=== PATIENT | female | born 1940 | race Caucasian/White ===

== ENCOUNTER 2017-08-03 07:06 | Day surgery (SDC) | payer MEDICARE, BC ==
--- NOTE | 2017-07-31 22:13 | HP ---
Amended report to enter cosigning physician on report. CC: Dr. Shelby PREOPERATIVE HISTORY AND PHYSICAL: DATE OF PREOPERATIVE HISTORY AND PHYSICAL EXAMINATION: 07/31/17. DATE OF ADMISSION: This patient is scheduled for a same day surgery admission by Dr. Shelby on , 08/03/17. ATTENDING SURGEON: Dr. Ngozi Shelby* (dictated by Adan Foley NP) CHIEF COMPLAINT: Right breast cancer. HISTORY OF PRESENT ILLNESS: The patient is a 76-year-old female who presented to Dr. Shelby with a new diagnosis of right breast cancer. The patient was doing monthly self breast exam and felt a small pea-sized lump in her right breast. She was referred for mammogram, which was unremarkable. 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 Menopause occurred between ages 52 and 57; she was on HRT for 2 years, 20 years ago. She has never had radiation to the chest and she has never had a breast biopsy that showed atypical ductal hyperplasia. The patient's mother had postmenopausal breast cancer diagnosed at age 85. There is no family history of ovarian cancer. She has met with Dr. Cho and Dr. Sims. Dr. Shelby has described the various surgical approaches and the patient has opted for needle localization excision of the right breast cancer and sentinel lymph node biopsy as a same-day surgery procedure. Dr. Shelby discussed the nature of the surgical procedure, the relevant risks, benefits, and alternatives and today I reviewed the expected postoperative care and recovery. The patient has had a chance to ask questions and stated that she understands the information and is satisfied with the answers given to her questions. She will sign surgical consent on the day of surgery. PAST MEDICAL HISTORY: Sensorineural hearing loss, spinal stenosis, osteoarthritis, and low back pain. PAST SURGICAL HISTORY: D and C with hysteroscopy in 2000 and stapedectomy in 1962. MEDICATIONS: No active medications. No prescribed current medications, but she is on: 1. Sarv-oyr-ehcritz glucosamine chondroitin. 2. Probiotic. 3. Calcium supplement, vitamin C supplement, and multivitamin supplement daily. ALLERGIES: PENICILLIN caused rash. FAMILY HISTORY: Mother diagnosed with breast cancer at age 85, at age 90. No known family history of ovarian cancer. No known family history of anesthesia complications, bleeding tendencies, or blood clots. SOCIAL HISTORY: She is ; she quit smoking 19 years ago, but had smoked half a pack of cigarettes per day for 20 years. She occasionally drinks alcohol. She denies the use of other substances. REVIEW OF SYSTEMS: Constitutional: No fevers, chills, night sweats, or excessive fatigue. Endocrine: No diabetes or thyroid disease. Hematologic: No easy bruising or bleeding. No history of blood transfusions. Breast: Abnormal right breast mass. Respiratory: No dyspnea on exertion, chronic cough , or hemoptysis. Cardiovascular: No anginal chest pain or palpitations. Gastrointestinal: No nausea, vomiting, diarrhea, GI bleeding, or constipation. No change in bowel habits. Genitourinary: No dysuria. Musculoskeletal: Lower back pain, osteoarthritis, and spinal stenosis. Neurologic: No headache , blurred vision, or areas of focal weakness. General: No previous anesthesia complications, no history of deep vein thrombosis or pulmonary embolism. PHYSICAL EXAMINATION GENERAL SURVEY: The patient is a 76-year-old obese female, well-developed, in no acute distress. VITAL SIGNS: Height 66 inches, weight 220 pounds, body mass index 35.8, blood pressure 118/74, pulse 84 and regular, respiratory rate 16, temperature 97.1 tympanic. HEENT: Benign. NECK: Supple. No cervical lymphadenopathy. No supraclavicular lymphadenopathy. No thyromegaly. LUNGS: Breath sounds bilaterally clear and equal. BREASTS: Symmetrical, bruising of the right breast at the core biopsy site, no infection. Dense tissue in the upper outer quadrant of both breasts. There is more nodularity in the right than the left associated with the bruising. There are no discrete masses. Nipples are erect bilaterally. No palpable axillary lymphadenopathy bilaterally. HEART: Regular rate and rhythm. No murmurs or rubs appreciated. ABDOMEN: Active bowel sounds, obese, soft, nondistended, and nontender throughout. No obvious masses, organomegaly, or evidence of ventral hernia. PELVIS AND RECTAL EXAMS: Deferred. EXTREMITIES: Warm without edema or skin ulceration. NEUROLOGIC: Alert and oriented x3. Steady gait. BACK: No CVA tenderness. SKIN: Warm, dry, and intact. IMPRESSION: Right breast cancer. PLAN: Same-day surgery admission to Dr. Shelby's service on , 08/03/17 , for needle localization, excision of right breast cancer, and sentinel lymph node biopsy. ADAN FOLEY, MATERIAL SPECIALIST [id number]/[facility] #: [id number] JUANA
[~2017-08-03 07:06] MED LIST: Buffered Lidocaine 0.9% SYRIN* 5 ML/SYR SYRINGE INTRADERM ONE
[2017-08-03] MEDS ORDERED: Lidocaine 2.5%/Prilocain 2.5%* 5 GM TUBE ONE (07:16)
--- NOTE | 2017-08-03 09:44 | RAD ---
Indication: Upper-outer quadrant RIGHT breast cancer. Wire localization. Comparison: June 29, 2017 Following discussion of benefits and risks including but not limited to pain, infection, and bleeding written informed consent was obtained. The breast was marked. PROCEDURE: A time out was performed. Cephalad to caudal cc approach selected. Lesion identified on initial mammographic view with fenestrated compression paddle. The skin was cleansed with antiseptic. 1% buffered Lidocaine was infiltrated into the skin and subcutaneous tissues. A 7.5cm 20g Zapata needle was advanced into the breast at the site of the targeted lesion. Position checked with a mammogram. Orthogonal view obtained to assess depth of needle. Needle depth adjusted and rechecked with mammography. The needle was removed and the hook wire deployed. Post deployment CC and ML views obtained and annotated for the surgeon. The free end of the wire was taped to the skin. The patient tolerated the procedure without difficult and there were no immediate complications. IMPRESSION: Successful mammographic guided wire localization biopsy marker clip upper outer quadrant RIGHT breast.
[2017-08-03] MEDS ORDERED: fentaNYL* 50 MCG/ML 2 ML VIAL (100 MCG VIAL) ONE ×2 (11:33→14:27)
[2017-08-03] MEDS ORDERED: Midazolam* 1 MG/ML 2 ML VIAL (2 MG) ONE ×2 (11:33→13:01)
--- NOTE | 2017-08-03 12:01 | RAD ---
INDICATION: RIGHT breast cancer. PROCEDURE: The risks and benefits of the procedure were explained to the patient. Written informed consent was obtained. 0.322 mCi total of filtered sulfur colloid were injected intradermal in 4 divided doses along the areolar margin flanking the RIGHT tumor site. Spot images?were?obtained?of?the?thorax with the ipsilateral arm over the head. Faint solitary ipsilateral axillary sentinal node marked on the skin utilizing a point source. IMPRESSION: Successful lymphoscintigraphy RIGHT breast.
[2017-08-03] MEDS ORDERED: Bupivacaine 0.25% SDV* 30 ML ONE (12:10)
[2017-08-03] MEDS ORDERED: Lidocaine 1% MPF wEPI 200,000* 30 ML SDV ONE (12:10)
[2017-08-03] MEDS ORDERED: Bupivacaine 0.5% SDV PF* 30 ML VIAL ONE (12:11)
[2017-08-03] MEDS ORDERED: Lidocaine 1% INJ* 10 MG/ML 30 ML SDV ONE (12:11)
[2017-08-03] MEDS ORDERED: Clindamycin 900 MG IVPREMIX(* 900 MG/50 ML SDV IV ONE (12:16)
[2017-08-03] MEDS ORDERED: Heparin VIAL(*) 5000 UNITS/ML VIAL (FIVE THOUSAND) ONE (12:16)
[2017-08-03] MEDS ORDERED: Propofol* 10 MG/ML 20 ML BTL IV PUSH ONE (13:59)
[2017-08-03] MEDS ORDERED: HYDROmorphone INJ* 1 MG/ML CARPUJECT SYRINGE IV PRN (14:42)
[2017-08-03] MEDS ORDERED: Acetaminophen TAB* 325 MG PO PRN (14:42)
[2017-08-03] MEDS ORDERED: Ondansetron INJ* 2 MG/ML VIAL IV PRN (14:42)
[2017-08-03] MEDS ORDERED: Ibuprofen TAB* 600 MG PO PRN (14:42)
--- NOTE | 2017-08-03 14:57 | PN ---
Progress Note - Progress Note Date of Service: 08/03/17 Note: Brief Operative Note: Preop Dx: right breast cancer Postop Dx: same Procedure: wide excision right breast cancer after needle localization; right axillary dissection Anesthesia: local MAC Surgeon: Heron Asst: ISACC Conteh EBL: < 50 ml Fluids: 600 ml RL Drains: 1 CODY Specimen: Right breast wide excision; tissue deep to initial specimen; Right axillary contents Findings: dictated
[2017-08-03] MEDS ORDERED: oxyCODONE/Acetamin 5/325 MG* TAB PO PRN (14:58)
[2017-08-03] MEDS ORDERED: Ibuprofen TAB* 600 MG ONE (15:03)
[2017-08-03 16:35] VITALS: BP 143/73
--- NOTE | 2017-08-04 03:43 | OP ---
CC: [facility]; Dr. Arie Null OPERATIVE REPORT: DATE OF OPERATION: 08/03/17 DATE OF : 44 SURGEON: Ngozi Shelby MD TECHNOLOGY TRAINING ASSOCIATE: ISACC Robison PRE-OP DIAGNOSIS: Right breast cancer. POST-OP DIAGNOSIS: Right breast cancer. OPERATIVE PROCEDURE: Needle localization excision of right breast cancer, sentinel lymph node local ization, and axillary dissection. INDICATIONS: Ms. Coffey is a 76-year-old woman who was recently diagnosed with breast cancer prompt ing the plan for surgical intervention. On the morning of the surgery, she underwent needle localiz ation and sentinel lymph node localization without difficulty, although the sentinel lymph node loca lization was reported to be faint. DESCRIPTION OF PROCEDURE: She was brought to the operating room placed on the OR table in a supine position and given IV sedation. The right breast and axilla were prepped and draped in the usual st erile fashion taking care not to dislodge the localizing wire. After infiltrating with a local anes thetic, a curvilinear elliptical incision encompassing the wire was made. Subcutaneous tissue was t hen divided with electrocautery to excise the mass of tissue from around the wire. It was noted cari t the wire protruded from the end of this specimen. So, it was marked in the usual fashion handed o ff and then additional tissue from deep to this specimen was taken. This was done with electrocaute ry. The second specimen was also marked in the usual fashion and handed off. Hemostasis was then a chieved with electrocautery and then attention was turned to the axilla. Here, it was recognized th at there was absolutely no radiotracer in the axilla. So, the specimens that had been handed off we re checked for any radiotracer and there was none in any of the specimens and so the decision was ma alina to proceed with axillary dissection. The axillary contents were identified after dissecting it f urther superiorly with a sharp and electrocautery dissection and then swept posteriorly from the pec toralis muscle inferiorly from the axillary vein and anteriorly from the latissimus dorsi muscle. A combination of sharp and blunt dissection was used to remove the axillary contents and clips were u sed to control small lymphatic vessels and blood vessels that traverse the specimen. Once it was re moved, it was handed off. The wound was irrigated with saline and checked for hemostasis, which was adequate. CODY drain was inserted into the wound through a small stab wound in the anterior axillary line. This was made after infiltrating with local anesthetic. Closure was then accomplished with 3-0 Polysorb in the subcutaneous layer and the skin was closed with 4-0 Prolene in the subcuticular fashion. Steri- Strips and a dry sterile dressing were applied. All sponge and instrument counts w ere correct. The patient tolerated the procedure well and was transferred to Recovery in a stable c ondition. [id number]/[facility] #: [id number]
== END 2017-08-03 17:10 | disposition home or self-care (01) ==
LOC: OR 07:06
PROVIDERS: ATTEND Surgery
DX: C50.911 Malignant neoplasm of unspecified site of right female breast (principal); C77.3 Secondary and unspecified malignant neoplasm of axilla and upper limb lymph nodes; Z80.3 Family history of malignant neoplasm of breast; Z88.0 Allergy status to penicillin; Z17.0 Estrogen receptor positive status [ER+]; Z87.891 Personal history of nicotine dependence
CPT/HCPCS: 78195; 88307; A9270-GY; A9541; J1644; J2001; J2250; J2704; J3010

== ENCOUNTER 2017-09-08 12:08 | Day surgery (SDC) | payer MEDICARE, BC ==
[~2017-09-08 12:08] MED LIST changes: +DiMENhydriNATE IV* 50 MG/ML VIAL IV PUSH PRN; +Famotidine IV* 10 MG/ML 2 ML (20 mg) IV ONE; +KETAMINE HCL* 50 MG/ML 10 ML VIAL ONE; +Midazolam* 1 MG/ML 10 ML VIAL (10 MG) ONE; +Morphine INJ* 2 MG/ML 1 ML CARPUJECT IV PRN; +Ondansetron INJ* 2 MG/ML VIAL IV PRN; +PROCHLORPERAZINE INJ 5 MG/ML 2 ML VIAL IV PRN; +fentaNYL* 50 MCG/ML 2 ML VIAL (100 MCG VIAL) IV PRN; +fentaNYL* 50 MCG/ML 2 ML VIAL (100 MCG VIAL) ONE; +oxyCODONE/Acetamin 5/325 MG* TAB PO PRN
[2017-09-08] MEDS ORDERED: Famotidine IV* 10 MG/ML 2 ML (20 mg) ONE (12:15)
[2017-09-08] MEDS ORDERED: Buffered Lidocaine 0.9% SYRIN* 5 ML/SYR SYRINGE ONE (12:16)
[2017-09-08] MEDS ORDERED: Lidocaine 1% INJ* 10 MG/ML 30 ML SDV ONE (12:36)
[2017-09-08] MEDS ORDERED: Bupivacaine 0.5% SDV PF* 30 ML VIAL ONE (12:37)
--- OUTSIDE RECORDS SUMMARY | 2017-09-08 13:20 | XMS REPORT ---
:1940 External Reference #:[id number] Author Organization [facility] Address [address] [address] Phone [phone] Care Team Providers Name Role Phone Arie Null MD Primary Care Physician Unavailable Payers Type Date Identification Numbers Payment Provider Subscriber Medicare Primary Policy Number: [id number] Medicare Lauren Ponce PayID: [id number] [address] [place] [address] [facility] Part B Effective: 2012 Policy Number: BS Facets Gómez Ponce [id number] PayID: [id number] [address] [address] [place] [address] Problems Description No Information Family History Date Family Member(s) Problem(s) Comments General Heart Disease General Cancer General Diabetes Social History Type Date Description Comments Lives With Occupation Retired Smokeless Tobacco Never Used Smokeless Tobacco ETOH Use Occasionally consumes alcohol Smoking Patient is a former smoker quit [id number] Exercise Type/Frequency Does not exercise Allergies, Adverse Reactions, Alerts Date Description Reaction Status Severity Comments 07/04/2017 Penicillin Urticaria active 04/10/2014 NKDA inactive Medications Medication Date Status Form Strength Qnty SIG Indications Ordering Provider Multi-Vitamin Active Tablets 1 by Unknown 000 mouth every day Vitamin C Plus Active Chewtabs 500mg 1/2 tab Unknown [place] 000 in the am and 1/2 pm Calcium Active 500 MG Unknown 000 daily Probiotic Active Capsules 1 by Unknown Daily 000 mouth every day Glucosamine Active Capsules 500Comp 1 by Unknown Chondroitin 000 mouth 500 Complex twice a day Ibuprofen Active Tablets 200mg as needed Unknown 000 Vitamin B Active Tablets 50mg 1 by Unknown Complex 000 mouth every day Oxycodone-Acet Hx Tablets 5-325mg 12tabs 1 tab by Nanci aminophen 017 mouth B. every 4- [place], 6 hours [employer] as needed No Active Hx Eulogio Medications 014 - Shreya Tatum 017 Vital Signs Date Vital Result Comment 09/06/2017 Heart Rate 78 /min Respiratory Rate 18 /min Body Temperature 97.4 F 09/04/2017 Heart Rate 72 /min Respiratory Rate 18 /min Body Temperature 98.3 F 09/01/2017 Heart Rate 72 /min Respiratory Rate 16 /min Body Temperature 97.7 F 08/28/2017 Heart Rate 72 /min Respiratory Rate 18 /min Body Temperature 96.8 F 08/22/2017 Heart Rate 84 /min Respiratory Rate 18 /min Body Temperature 96.3 F 08/21/2017 Heart Rate 78 /min Respiratory Rate 18 /min Body Temperature 97.2 F 08/14/2017 Heart Rate 84 /min Respiratory Rate 16 /min Body Temperature 98.6 F 08/10/2017 Heart Rate 76 /min Respiratory Rate 18 /min Body Temperature 98.5 F 08/07/2017 Heart Rate 84 /min Respiratory Rate 18 /min Body Temperature 97.9 F 07/31/2017 Height 66 inches 5'6" Weight 222.00 lb Heart Rate 84 /min BP Systolic Sitting 118 mmHg BP Diastolic Sitting 74 mmHg Respiratory Rate 16 /min Body Temperature 97.1 F BMI (Body Mass Index) 35.8 kg/m2 07/04/2017 Height 66 inches 5'6" Weight 220.00 lb Heart Rate 80 /min BP Systolic 118 mmHg BP Diastolic 78 mmHg Respiratory Rate 16 /min Body Temperature 98.2 F BMI (Body Mass Index) 35.5 kg/m2 06/03/2014 Height 66 inches 5'6" Heart Rate 70 /min BP Systolic 111 mmHg BP Diastolic 68 mmHg 05/20/2014 Height 66 inches 5'6" Weight 213.00 lb Heart Rate 71 /min BP Systolic 120 mmHg BP Diastolic 86 mmHg BMI (Body Mass Index) 34.4 kg/m2 04/10/2014 Height 67 inches 5'7" Weight 2129.56 lb Heart Rate 119 /min BP Systolic 67 mmHg BMI (Body Mass Index) 333.5 kg/m2 Results Test Date Test Result H/L Range Note Laboratory test 08/03/2017 Surgical Pathology SEE RESULT BELOW 1 finding 1 SEE RESULT BELOW Name: LAUREN PONCE : [address]: Ngozi Shelby MD Acct: [id number] Unit: [id number] AGE: 76 Location: OR Re08/03/17 SEX: F Status: [facility] [place] SPEC: [id number] CLARE: 08/03/[address]: Ngozi Shelby MD REQ: [id number] RECD: 08/03/17 STATUS: SOUT _ ORDERED: LEVEL 5/3 FINAL DIAGNOSIS 1. Breast, right, excision: -- Invasive ductal adenocarcinoma of breast, with: Size: Approximately 40 mm see comment. Overall Jose grade: 2/3 (7/9 points). Tubule formation: 3. Nuclear grade: 3. Mitotic count: 1. Margins: Tumor is present at the lateral deep, mid deep, medial deep, lateral inferior anterior and medial superior anterior margin. Lymphovascular invasion: Present, very extensive. Skin: Not involved. Chest-wall / pectoralis involvement: Not seen Ductal carcinoma in situ (DCIS): Focally Present. Size: Approximately 5 mm. Extent and distribution: Seen focally in association with invasive carcinoma. Architectural pattern: Solid and papillary. Nuclear grade: 3. Necrosis: Not seen. Margins: Clear by greater than 5 mm.. ER, PA, Her2/jorge by immunohistochemistry with appropriate controls: ER: Positive, 3+, 100% of tumor cells. See comment. PA: Negative. See comment. Her2/jorge: Negative, (0+). See comment. Microcalcifications: Not seen. Other findings: None. pTNM histopathologic stage: pT2N 1a M N/A. 2. Breast, right, excision: -- Invasive ductal adenocarcinoma of breast, with: Size: Approximately 16 mm. Overall Jose grade: 2/3 (7/9 points). Tubule formation: 3. Nuclear grade: 3. Mitotic count: 1. CONTINUED ON NEXT PAGE * ML=Testing performed at Main Lab DEPARTMENT OF PATHOLOGY, [address] [place] [address] Landon Turner M.D. Director [facility] # [id number] RUN DATE: 08/08/17 [facility] LIVE PAGE 2 Patient: LAUREN PONCE [id number] (Continued) FINAL DIAGNOSIS (Continued) Margins: Tumor is present at the cauterized inferior anterior margin of this specimen. See comment. Other margins are clear by greater than 5 mm.. Lymphovascular invasion: Present, extensive. Skin: NA. Chest-wall / pectoralis involvement: NA. Ductal carcinoma in situ (DCIS): Not seen. Microcalcifications: Not seen. Other findings: Not seen. 3. Axilla, right, dissection: -- Metastatic adenocarcinoma involving two of four lymph nodes (2/4). -- Largest tumor deposit measures 7 mm. -- No extracapsular extension identified. Comment: Hormone receptor studies for ER, PA and HER-2 reported above are from prior case [id number]. The cauterized superior anterior margin of specimen part 2 appears to represent contiguous tissue with the tumor excised in part 1. Given the orientation of the specimens to one another it does not appear that the overall greatest dimension surpasses 50 mm and therefore does not alter the T stage. Correlation with surgical and imaging findings is suggested. Dr. Larose has reviewed this case and concurs. PRE-OPERATIVE DIAGNOSIS Malignant neoplasm of upper outer quadrant of right female breast; 1) long suture lateral, medium suture medial, short suture superior GROSS DESCRIPTION 1. The specimen is received fresh labeled, Right Breast Tissue, and consists of a 6.9 x 5.5 by up to 3.5 cm yellow-pink irregular to ovoid portion of fibrofatty soft tissue with three attached sutures which are designated as follows: long-lateral, short- superior and medium-medial. The specimen is partially surfaced by a 3.0 x 0.7 cm chávez- pink wrinkled skin CONTINUED ON NEXT PAGE * ML=Testing performed at Main Lab DEPARTMENT OF PATHOLOGY, [address] [place] [address] Landon Turner M.D. Director [facility] # [id number] RUN DATE: 08/08/17 [facility] LIVE PAGE 3 Patient: LAUREN PONCE [id number] (Continued) GROSS DESCRIPTION (Continued) GROSS DESCRIPTION (Continued) ellipse on the mid anterior surface. There is a needle localization wire entering the specimen through the skin ellipse and exiting the specimen at the deep inferior margin. There is a 0.8 x 0.5 x 0.5 cm chávez-white indurated granular nodule within the central specimen associated with the localization wire, 1.2 cm from the inferior anterior margin and 1.3 cm from the deep margin. There is a 0.3 x 0.1 x 0.1 cm silver metallic clip within the nodule. Additionally there is a 0.5 x 0.4 x 0.4 cm dusky chávez-white soft area , 0.5 cm from the indurated nodule. The remaining cut surface consists predominantly of yellow lobulated adipose tissue with moderate interspersed chávez-pink dense to focally nodular fibrous tissue. The specimen is inked as follows: superior anterior-blue, inferior anterior- green and deep-black, serially sectioned from lateral to medial and shipping services sales representative sections are submitted in cassettes A through J to include nodule in cassettes E and F including section containing clip in cassette E and dusky area in cassettes D and E. 2. The specimen is received fresh labeled, Right Breast Tissue, Usual Markings, and consists of a 7.0 x 4.4 by up to 1.2 cm yellow-pink irregular portion of fibrofatty soft tissue with three attached sutures which are designated as follows: long- lateral, short-superior and medium-medial. The cut surface consists predominantly of yellow lobulated adipose tissue with mild interspersed chávez-white focally dense to nodular fibrous tissue. The specimen is inked as follows: superior anterior-blue, inferior anterior-green and deep-black, serially sectioned from superior to inferior and shipping services sales representative sections are submitted in cassettes A through G. 3. The specimen is received in formalin labeled, Axillary Contents Right Side, and consists of a 7.4 x 5.0 x 1.4 cm aggregate of yellow lobulated adipose tissue. Within the aggregate there are a few chávez-pink probable lymph nodes ranging from 0.6 cm to 1.6 cm in greatest dimension. The cut surface is glistening chávez-pink to white. The lymph nodes are serially sectioned and entirely submitted in four cassettes to include one serially sectioned lymph node in each cassette. Signed (signature on file) Landon Turner MD [id number] END OF REPORT * ML=Testing performed at Main Lab DEPARTMENT OF PATHOLOGY, [address] [place] [address] Landon Turner M.D. Director [facility] # [id number] Procedures Date CPT Code Description Status 08/18/2017 31876 Mastectomy Mod Radical Not Including Pectoralis Major Completed Muscle 08/18/2017 75919 Mastectomy Mod Radical Not Including Pectoralis Major Completed Muscle 08/15/2017 89032 ECHO Transthorasic Realtime 2D W Doppler & Color Completed Flow Hosp 08/03/2017 41439 Lymphadenectomy Axillary Complete Completed 08/03/2017 88787 Lymphadenectomy Axillary Complete Completed 08/03/2017 30907 Mastectomy Partial Completed 08/03/2017 35373 Mastectomy Partial Completed 08/03/2017 Mammogram Completed 06/29/2017 Mammogram Completed 05/26/2017 Mammogram Completed 09/12/2014 57847 ECHO Transthoracic, Real-Time 2D With Doppler And Color Completed Flow Encounters Type Date Location Provider CPT E/M Dx Office Visit 07/04/2017 [facility] [place] [address] C50.411 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 30735 836.0 10:00a Of C.M.AAparna Office Visit 04/10/2014 [facility] ROBERT Irizarry 76826 836.0 8:45a Of Isa Plan of Care Future Appointment(s):09/08/2017 12:45 pm - Ngozi Shelyb MD at [facility]09/06/2017 - Ngozi Shelby, MDC50.411 Malig neoplm of upper- outer quadrant of right female breastFollow up:scheduled for port placement in 2 days; return for further problems.
--- OUTSIDE RECORDS SUMMARY | 2017-09-08 13:21 | XMS REPORT ---
:1940 External Reference #:[id number] Author Organization [employer] Address [address] [address] Phone [phone] Care Team Providers Name Role Phone Arie Null MD Primary Care Physician Unavailable Payers Type Date Identification Numbers Payment Provider Subscriber Medicare Primary Policy Number: [id number] Medicare Michael Ponce PayID: [id number] [address] [place] [address] [facility] Part B Effective: 2012 Policy Number: BS Facets Gómez Ponce [id number] PayID: [id number] [address] [address] [place] [address] Problems Description No Information Family History Date Family Member(s) Problem(s) Comments General Heart Disease General Cancer General Diabetes Social History Type Date Description Comments Lives With Occupation Retired Smokeless Tobacco Never Used Smokeless Tobacco ETOH Use Occasionally consumes alcohol Smoking Patient is a former smoker quit [id number] Exercise Type/Frequency Does not exercise Allergies, Adverse Reactions, Alerts Date Description Reaction Status Severity Comments 07/04/2017 Penicillin Urticaria active 04/10/2014 NKDA inactive Medications Medication Date Status Form Strength Qnty SIG Indications Ordering Provider Multi-Vitamin Active Tablets 1 by Unknown 000 mouth every day Vitamin C Plus Active Chewtabs 500mg 1/2 tab Unknown [place] Hips 000 in the am and 1/2 pm Calcium Active 500 MG Unknown 000 daily Probiotic Active Capsules 1 by Unknown Daily 000 mouth every day Glucosamine Active Capsules 500Comp 1 by Unknown Chondroitin 000 mouth 500 Complex twice a day Ibuprofen Active Tablets 200mg as needed Unknown 000 Oxycodone-Acet Hx Tablets 5-325mg 12tabs 1 tab by Nanci aminophen 017 mouth B. 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 Breast, right, excision: -- Invasive ductal adenocarcinoma of breast, with: Size: Approximately 40 mm see comment. Overall [place] grade: 2/3 (7/9 points). Tubule formation: 3. [...] Clear by greater than 5 mm.. ER, MD, Her2/jorge by immunohistochemistry with appropriate controls: ER: Positive, 3+, 100% of tumor cells. See comment. MD: Negative. See comment. Her2/jorge: Negative, (0+). See comment. Microcalcifications: Not seen. Other findings: None. pTNM histopathologic stage: pT2N 1a M N/A. 2. Breast, right, excision: -- Invasive ductal adenocarcinoma of breast, with: Size: Approximately 16 mm. Overall [place] grade: 2/3 (7/9 points). Tubule formation: 3. Nuclear grade: 3. Mitotic count: 1. CONTINUED ON NEXT PAGE * ML=Testing performed at Main Lab DEPARTMENT OF PATHOLOGY, [address] [place] [address] Landon Turner M.D. Director [facility] # [id number] RUN DATE: 08/08/17 [facility] LAB LIVE PAGE 2 Patient: MICHAEL PONCE [id number] (Continued) FINAL DIAGNOSIS (Continued) Margins: Tumor is [...] identified. Comment: Hormone receptor studies for ER, MD and HER-2 reported above are from prior case [id number]. The cauterized superior anterior margin of specimen [...] performed at Main Lab DEPARTMENT OF PATHOLOGY, [address] [place] [address] Landon Turner M.D. Director [facility] # [id number] RUN DATE: 08/08/17 [facility] LAB LIVE PAGE 3 Patient: PONCEMICHAEL [id number] (Continued) GROSS DESCRIPTION (Continued) GROSS DESCRIPTION (Continued) [...] serially sectioned from lateral to medial and treasury representative sections are submitted in cassettes A [...] serially sectioned from superior to inferior and treasury representative sections are submitted in cassettes A [...] performed at Main Lab DEPARTMENT OF PATHOLOGY, [address] [place] [address] Landon Turner M.D. Director [facility] # [id number] Procedures Date CPT Code Description Status 08/03/2017 18331 Lymphadenectomy Axillary Complete Completed 08/03/2017 06430 Lymphadenectomy Axillary Complete Completed 08/03/2017 68550 Mastectomy Partial Completed 08/03/2017 40490 Mastectomy Partial Completed 08/03/2017 Mammogram Completed 06/29/2017 Mammogram Completed 05/26/2017 Mammogram Completed 09/12/2014 68316 ECHO Transthoracic, Real-Time 2D With Doppler And Color Completed Flow Encounters Type Date Location Provider CPT E/M Dx Office Visit 07/04/2017 [place] [address] C50.411 9:30a Of Abstractor Office Visit 06/03/2014 [facility] Connie Rahman, 16137 715.96 10:15a Of C.M.A. RPA-C Office Visit 05/20/2014 [facility] Eulogio Tatum M.D. 39131 836.0 10:00a Of C.M.A. Office Visit 04/10/2014 [facility] Cherrie Garcia RPA-C 11760 836.0 8:45a Of C.M.A. 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
--- OUTSIDE RECORDS SUMMARY | 2017-09-08 13:21 | XMS REPORT ---
:1940 External Reference #:[id number] Author Organization [employer] Address [address] [address] Phone [phone] Care Team Providers Name Role Phone Arie Null MD Primary Care Physician Unavailable Payers Type Date Identification Numbers Payment Provider Subscriber Medicare Primary Policy Number: [id number] Medicare Michael Ponce PayID: [id number] [address] [place] [address] [facility] Part B Effective: 2012 Policy Number: BS Facets Gómez Ponce [id number] PayID: [id number] [address] [address] [place] [address] Problems Description No Information Family History Date Family Member(s) Problem(s) Comments General Heart Disease General Cancer General Diabetes Social History Type Date Description Comments Lives With Occupation Retired Smokeless Tobacco Never Used Smokeless Tobacco ETOH Use Occasionally consumes alcohol Smoking Patient is a former smoker quit [id number] Exercise Type/Frequency Does not exercise Allergies, Adverse Reactions, Alerts Date Description Reaction Status Severity Comments 07/04/2017 Penicillin Urticaria active 04/10/2014 NKDA inactive Medications Medication Date Status Form Strength Qnty SIG Indications Ordering Provider Multi-Vitamin Active Tablets 1 by Unknown 000 mouth every day Vitamin C Plus Active Chewtabs 500mg 1/2 tab Unknown [place] Hips 000 in the am and 1/2 [...] mouth B. 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 Breast, right, excision: -- Invasive ductal adenocarcinoma of breast, with: Size: Approximately 40 mm see comment. Overall [place] grade: 2/3 (7/9 points). Tubule formation: 3. [...] Clear by greater than 5 mm.. ER, TN, Her2/jorge by immunohistochemistry with appropriate controls: ER: Positive, 3+, 100% of tumor cells. See comment. TN: Negative. See comment. Her2/jorge: Negative, (0+). See comment. Microcalcifications: Not seen. Other findings: None. pTNM histopathologic stage: pT2N 1a M N/A. 2. Breast, right, excision: -- Invasive ductal adenocarcinoma of breast, with: Size: Approximately 16 mm. Overall [place] grade: 2/3 (7/9 points). Tubule formation: 3. Nuclear grade: 3. Mitotic count: 1. CONTINUED ON NEXT PAGE * ML=Testing performed at Main Lab DEPARTMENT OF PATHOLOGY, [address] [place] [address] Landon Turner M.D. Director [facility] # [id number] RUN DATE: 08/08/17 [facility] LAB LIVE PAGE 2 Patient: MICHAEL PONCE [id number] (Continued) FINAL DIAGNOSIS (Continued) Margins: Tumor is [...] identified. Comment: Hormone receptor studies for ER, TN and HER-2 reported above are from prior case [id number]. The cauterized superior anterior margin of specimen [...] performed at Main Lab DEPARTMENT OF PATHOLOGY, [address] [place] [address] Landon Turner M.D. Director [facility] # [id number] RUN DATE: 08/08/17 [facility] LAB LIVE PAGE 3 Patient: MICHAEL PONCE Anup [id number] (Continued) GROSS DESCRIPTION (Continued) GROSS DESCRIPTION (Continued) [...] serially sectioned from lateral to medial and business center representative sections are submitted in cassettes A [...] serially sectioned from superior to inferior and business center representative sections are submitted in cassettes A [...] performed at Main Lab DEPARTMENT OF PATHOLOGY, [address] [place] [address] Landon Turner M.D. Director [facility] # [id number] Procedures Date CPT Code Description Status 08/18/2017 Mastectomy Mod Radical Not Including Pectoralis Major Completed Muscle 08/18/2017 06702 Mastectomy Mod Radical Not Including Pectoralis Major Completed Muscle 08/15/2017 64916 ECHO Transthorasic Realtime 2D W Doppler & Color Completed Flow Hosp 08/03/2017 61741 Lymphadenectomy Axillary Complete Completed 08/03/2017 11223 Lymphadenectomy Axillary Complete Completed 08/03/2017 09237 Mastectomy Partial Completed 08/03/2017 05540 Mastectomy Partial Completed 08/03/2017 Mammogram Completed 06/29/2017 Mammogram Completed 05/26/2017 Mammogram Completed 09/12/2014 15295 ECHO Transthoracic, Real-Time 2D With Doppler And Color Completed Flow Encounters Type Date Location Provider CPT E/M Dx Office Visit 07/04/2017 [place] [address] C50.411 9:30a Of Adoption Manager Office Visit 06/03/2014 [facility] Connie Rahman 14230 715.96 10:15a Of Isa JONES Office Visit 05/20/2014 [facility] Eulogio Tatum M.D. 85074 836.0 10:00a Of C.MAbdirizak Office Visit 04/10/2014 [facility] ROBERT Irizarry 09652 836.0 8:45a Of C.MAparnaAAparna Plan of Care Future Appointment(s):09/06/2017 10:30 am - Ngozi Shelby MD at [facility]09/08/2017 12:45 pm - Ngozi Shelby MD at [facility]09/04/2017 - Nanci Moore, NPC50.411 Malig neoplm of upper-outer quadrant of right female breastFollow up:09/06 CLF,possible gvjbihN70.4 Aspiration of fluid cause abn react/compl, w/o misadvnt
--- OUTSIDE RECORDS SUMMARY | 2017-09-08 13:21 | XMS REPORT ---
:1940 External Reference #:[id number] Author Organization [employer] Address [address] [address] Phone [phone] Care Team Providers Name Role Phone Arie Null MD Primary Care Physician Unavailable Payers Type Date Identification Numbers Payment Provider Subscriber Medicare Primary Policy Number: [id number] Medicare Michael Ponce PayID: [id number] [address] [place] [address] [facility] Part B Effective: 2012 Policy Number: BS Facets Gómez Ponce [id number] PayID: [id number] [address] [address] [place] [address] Problems Description No Information Family History Date Family Member(s) Problem(s) Comments General Heart Disease General Cancer General Diabetes Social History Type Date Description Comments Lives With Occupation Retired Smokeless Tobacco Never Used Smokeless Tobacco ETOH Use Occasionally consumes alcohol Smoking Patient is a former smoker quit [id number] Exercise Type/Frequency Does not exercise Allergies, Adverse Reactions, Alerts Date Description Reaction Status Severity Comments 07/04/2017 Penicillin Urticaria active 04/10/2014 NKDA inactive Medications Medication Date Status Form Strength Qnty SIG Indications Ordering Provider Multi-Vitamin Active Tablets 1 by Unknown 000 mouth every day Vitamin C Plus Active Chewtabs 500mg 1/2 tab Unknown [place] Hips 000 in the am and 1/2 [...] mouth B. 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 Breast, right, excision: -- Invasive ductal adenocarcinoma of breast, with: Size: Approximately 40 mm see comment. Overall [place] grade: 2/3 (7/9 points). Tubule formation: 3. [...] Clear by greater than 5 mm.. ER, ND, Her2/jorge by immunohistochemistry with appropriate controls: ER: Positive, 3+, 100% of tumor cells. See comment. ND: Negative. See comment. Her2/jorge: Negative, (0+). See [...] performed at Main Lab DEPARTMENT OF PATHOLOGY, [address] [place] [address] Landon Turner M.D. Director [facility] # [id number] RUN DATE: 08/08/17 [facility] LAB LIVE PAGE 2 Patient: ROSARIOMICHAEL [id number] (Continued) FINAL DIAGNOSIS (Continued) Margins: Tumor is [...] identified. Comment: Hormone receptor studies for ER, ND and HER-2 reported above are from prior case [id number]. The cauterized superior anterior margin of specimen [...] performed at Main Lab DEPARTMENT OF PATHOLOGY, [address] [place] [address] Landon Turner M.D. Director [facility] # [id number] RUN DATE: 08/08/17 [facility] LAB LIVE PAGE 3 Patient: PONCEMICHAEL [id number] (Continued) GROSS DESCRIPTION (Continued) GROSS DESCRIPTION (Continued) [...] serially sectioned from lateral to medial and manufacturers service representative sections are submitted in cassettes A [...] serially sectioned from superior to inferior and manufacturers service representative sections are submitted in cassettes A [...] performed at Main Lab DEPARTMENT OF PATHOLOGY, [address] [place] [address] Landon Turner M.D. Director [facility] # [id number] Procedures Date CPT Code Description Status 08/18/2017 26163 Mastectomy Mod Radical Not Including Pectoralis Major Completed Muscle 08/18/2017 01947 Mastectomy Mod Radical Not Including Pectoralis Major Completed Muscle 08/15/2017 78527 ECHO Transthorasic Realtime 2D W Doppler & Color Completed Flow Hosp 08/03/2017 29572 Lymphadenectomy Axillary Complete Completed 08/03/2017 27203 Lymphadenectomy Axillary Complete Completed 08/03/2017 45554 Mastectomy Partial Completed 08/03/2017 87729 Mastectomy Partial Completed 08/03/2017 Mammogram Completed 06/29/2017 Mammogram Completed 05/26/2017 Mammogram Completed 09/12/2014 47945 ECHO Transthoracic, Real-Time 2D With Doppler And Color Completed Flow Encounters Type Date Location Provider CPT E/M Dx Office Visit 07/04/2017 [place] [address] C50.411 9:30a Of [facility] Office Visit 06/03/2014 [facility] Connie Rahman, 33224 715.96 10:15a Of Isa JONES Office Visit 05/20/2014 [facility] Eulogio Tatum M.D. 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
--- OUTSIDE RECORDS SUMMARY | 2017-09-08 13:21 | XMS REPORT ---
:1940 External Reference #:[id number] Author Organization [employer] Address [address] [address] Phone [phone] Care Team Providers Name Role Phone Arie Null MD Primary Care Physician Unavailable Payers Type Date Identification Numbers Payment Provider Subscriber Medicare Primary Policy Number: [id number] Medicare Lauren Ponce PayID: [id number] [address] [place] [address] [facility] Part B Effective: 2012 Policy Number: BS Facets Gómez Ponce [id number] PayID: [id number] [address] [address] [place] [address] Problems Description No Information Family History Date Family Member(s) Problem(s) Comments General Heart Disease General Cancer General Diabetes Social History Type Date Description Comments Lives With Occupation Retired Smokeless Tobacco Never Used Smokeless Tobacco ETOH Use Occasionally consumes alcohol Smoking Patient is a former smoker quit [id number] Exercise Type/Frequency Does not exercise Allergies, Adverse Reactions, Alerts Date Description Reaction Status Severity Comments 07/04/2017 Penicillin Urticaria active 04/10/2014 NKDA inactive Medications Medication Date Status Form Strength Qnty SIG Indications Ordering Provider Multi-Vitamin Active Tablets 1 by Unknown 000 mouth every day Vitamin C Plus Active Chewtabs 500mg 1/2 tab Unknown [place] Hips 000 in the am and 1/2 pm Calcium Active 500 MG Unknown 000 daily Probiotic Active Capsules 1 by Unknown Daily 000 mouth every day Glucosamine Active Capsules 500Comp 1 by Unknown Chondroitin 000 mouth 500 Complex twice a day Ibuprofen Active Tablets 200mg as needed Unknown 000 Vitamin B Active Tablets 1 by Unknown Complex 000 mouth every day Oxycodone-Acet Hx Tablets 5-325mg 12tabs 1 tab by Nanci aminophen 017 mouth B. 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 ER, SC, Her2/jorge by immunohistochemistry with appropriate controls: ER: Positive, 3+, 100% of tumor cells. See comment. SC: Negative. See comment. Her2/jorge: Negative, (0+). See comment. Microcalcifications: Not seen. Other findings: None. pTNM histopathologic stage: pT2N 1a M N/A. 2. Breast, right, excision: -- Invasive ductal adenocarcinoma of breast, with: Size: Approximately 16 mm. Overall [place] grade: 2/3 (7/9 points). Tubule formation: 3. Nuclear grade: 3. Mitotic count: 1. CONTINUED ON NEXT PAGE * ML=Testing performed at Main Lab DEPARTMENT OF PATHOLOGY, [address] [place] [address] Landon Turner M.D. Director [facility] # [id number] RUN DATE: 08/08/17 [facility] LAB LIVE PAGE 2 Patient: LAUREN PONCE [id number] (Continued) FINAL DIAGNOSIS (Continued) Margins: Tumor is [...] identified. Comment: Hormone receptor studies for ER, SC and HER-2 reported above are from prior case [id number]. The cauterized superior anterior margin of specimen part 2 appears to represent contiguous tissue with the tumor excised in part 1. Given the orientation of the specimens to one another it does not appear that the overall greatest dimension surpasses 50 mm and therefore does not alter the T stage. Correlation with surgical and imaging findings is suggested. Dr. Laroes has reviewed this case and concurs. PRE-OPERATIVE [...] performed at Main Lab DEPARTMENT OF PATHOLOGY, [address] [place] [address] Landon Turner M.D. Director [facility] # [id number] RUN DATE: 08/08/17 [facility] LAB LIVE PAGE 3 Patient: LAUREN PONCE Anup [id number] (Continued) GROSS DESCRIPTION (Continued) GROSS DESCRIPTION (Continued) [...] serially sectioned from lateral to medial and sales donor recruitment representative sections are submitted in cassettes A [...] yellow lobulated adipose tissue with mild interspersed chávze-white focally dense to nodular fibrous tissue. The specimen is inked as follows: superior anterior-blue, inferior anterior-green and deep-black, serially sectioned from superior to inferior and sales donor recruitment representative sections are submitted in cassettes A [...] performed at Main Lab DEPARTMENT OF PATHOLOGY, [address] [place] [address] Landon Turner M.D. Director [facility] # [id number] Procedures Date CPT Code Description Status 08/18/2017 Mastectomy Mod Radical Not Including Pectoralis Major Completed Muscle 08/18/2017 53321 Mastectomy Mod Radical Not Including Pectoralis Major Completed Muscle 08/15/2017 39993 ECHO Transthorasic Realtime 2D W Doppler & Color Completed Flow Hosp 08/03/2017 09390 Lymphadenectomy Axillary Complete Completed 08/03/2017 26655 Lymphadenectomy Axillary Complete Completed 08/03/2017 05586 Mastectomy Partial Completed 08/03/2017 80318 Mastectomy Partial Completed 08/03/2017 Mammogram Completed 06/29/2017 Mammogram Completed 05/26/2017 Mammogram Completed 09/12/2014 37191 ECHO Transthoracic, Real-Time 2D With Doppler And Color Completed Flow Encounters Type Date Location Provider CPT E/M Dx Office Visit 07/04/2017 [place] [address] C50.411 9:30a Of [facility] Office Visit 06/03/2014 [facility] Connie Rahman, 26728 715.96 10:15a Of CJacek JONES Office Visit 05/20/2014 [facility] Eulogio Tatum M.D. 89966 836.0 10:00a Of C.M.AAparna Office Visit 04/10/2014 [facility] ROBERT Irizarry 47989 836.0 8:45a Of C.MAparnaAAparna Plan of Care Future Appointment(s):09/05/2017 1:45 pm - Ngozi Shelby MD at [facility]09/08/2017 12:45 pm - Ngozi Shelby MD at [facility]
--- OUTSIDE RECORDS SUMMARY | 2017-09-08 13:22 | XMS REPORT ---
:1940 External Reference #:[id number] Author Organization [facility] Address [address] [address] Phone [phone] Care Team Providers Name Role Phone Arie Null MD Primary Care Physician Unavailable Payers Type Date Identification Numbers Payment Provider Subscriber Medicare Primary Policy Number: [id number] Medicare Lauren Ponce PayID: [id number] [address] [place] [address] [facility] Part B Effective: 2012 Policy Number: BS Facets Gómez Ponce [id number] PayID: [id number] [address] [address] [place] [address] Problems Description No Information Family History Date Family Member(s) Problem(s) Comments General Heart Disease General Cancer General Diabetes Social History Type Date Description Comments Lives With Occupation Retired Smokeless Tobacco Never Used Smokeless Tobacco ETOH Use Occasionally consumes alcohol Smoking Patient is a former smoker quit [id number] Exercise Type/Frequency Does not exercise Allergies, Adverse Reactions, Alerts Date Description Reaction Status Severity Comments 07/04/2017 Penicillin Urticaria active 04/10/2014 NKDA inactive Medications Medication Date Status Form Strength Qnty SIG Indications Ordering Provider Multi-Vitamin Active Tablets 1 by Unknown 000 mouth every day Vitamin C Plus Active Chewtabs 500mg 1/2 tab Unknown [place] Hips 000 in the am and 1/2 [...] mouth B. every 4- [place], 6 hours OPTICAL EFFECTS LAYOUT PERSON as needed No Active Hx Eulogio Medications 014 - Shreya Tatum 017 Vital Signs Date Vital Result Comment 08/10/2017 Heart Rate 76 /min Respiratory Rate [...] 1 finding 1 SEE RESULT BELOW Name: ROSARIOLAUREN : [address]: Ngozi Shelby MD Acct: [id number] Unit: [id number] AGE: 76 Location: OR Re08/03/17 SEX: F Status: DEP [facility] SPEC: [id number] CLARE: 08/03/[address] [facility] [address]: Ngozi Shelby MD REQ: [id number] RECD: 08/03/17 STATUS: SOUT _ ORDERED: LEVEL 5/3 FINAL DIAGNOSIS 1. Breast, right, excision: -- Invasive ductal adenocarcinoma of breast, with: Size: Approximately 40 mm see comment. Overall [place] grade: 2/3 (7/9 points). Tubule formation: 3. [...] Clear by greater than 5 mm.. ER, MT, Her2/jorge by immunohistochemistry with appropriate controls: ER: Positive, 3+, 100% of tumor cells. See comment. MT: Negative. See comment. Her2/jorge: Negative, (0+). See [...] performed at Main Lab DEPARTMENT OF PATHOLOGY, [address] [place] [address] Landon Turner M.D. Director [facility] # [id number] RUN DATE: 08/08/17 [facility] LAB LIVE PAGE 2 Patient: LAUREN PONCE [id number] (Continued) FINAL DIAGNOSIS (Continued) Margins: Tumor is [...] identified. Comment: Hormone receptor studies for ER, MT and HER-2 reported above are from prior case [id number]. The cauterized superior anterior margin of specimen [...] performed at Main Lab DEPARTMENT OF PATHOLOGY, [address] [place] [address] Landon Turner M.D. Director [facility] # [id number] RUN DATE: 08/08/17 [facility] LAB LIVE PAGE 3 Patient: LAUREN PONCE Anup [id number] (Continued) GROSS DESCRIPTION (Continued) GROSS DESCRIPTION (Continued) [...] serially sectioned from lateral to medial and promotions representative sections are submitted in cassettes A [...] serially sectioned from superior to inferior and promotions representative sections are submitted in cassettes A [...] performed at Main Lab DEPARTMENT OF PATHOLOGY, [address] [place] [address] Landon Turner M.D. Director [facility] # [id number] Procedures Date CPT Code Description Status 08/03/2017 57545 Lymphadenectomy Axillary Complete Completed 08/03/2017 80101 Lymphadenectomy Axillary Complete Completed 08/03/2017 79232 Mastectomy Partial Completed 08/03/2017 64328 Mastectomy Partial Completed 08/03/2017 Mammogram Completed 06/29/2017 Mammogram Completed 05/26/2017 Mammogram Completed 09/12/2014 31173 ECHO Transthoracic, Real-Time 2D With Doppler And Color Completed Flow Encounters Type Date Location Provider CPT E/M Dx Office Visit 07/04/2017 [facility] [place] [address] C50.411 9:30a Of Glaze Maker Office Visit 06/03/2014 [facility] Connie Rahman, 81015 715.96 10:15a Of C.M.A. RPA-C Office Visit 05/20/2014 [facility] Eulogio Tatum M.D. 11171 836.0 10:00a Of C.M.A. Office Visit 04/10/2014 [facility] Cherrie Garcia RPA-C 85909 836.0 8:45a Of C.M.A. Plan of Care 08/07/2017 - Nanci Moore, NPC50.411 Malig neoplm of upper-outer quadrant of right female breastFollow up:08/10 [place],REMOVE JPZ48.01 Encounter for change or removal of surgical wound dressing
--- OUTSIDE RECORDS SUMMARY | 2017-09-08 13:22 | XMS REPORT ---
:1940 External Reference #:[id number] Author Organization [facility] Address [address] [address] Phone [phone] Care Team Providers Name Role Phone Arie Nlul MD Primary Care Physician Unavailable Payers Type Date Identification Numbers Payment Provider Subscriber Medicare Primary Policy Number: [id number] Medicare Lauren Ponce PayID: [id number] [address] [place] [address] [facility] Part B Effective: 2012 Policy Number: BS Facets Gómez Ponce [id number] PayID: [id number] [address] [address] [place] [address] Problems Description No Information Family History Date Family Member(s) Problem(s) Comments General Heart Disease General Cancer General Diabetes Social History Type Date Description Comments Lives With Occupation Retired Smokeless Tobacco Never Used Smokeless Tobacco ETOH Use Occasionally consumes alcohol Smoking Patient is a former smoker quit [id number] Exercise Type/Frequency Does not exercise Allergies, Adverse Reactions, Alerts Date Description Reaction Status Severity Comments 07/04/2017 Penicillin Urticaria active 04/10/2014 NKDA inactive Medications Medication Date Status Form Strength Qnty SIG Indications Ordering Provider Multi-Vitamin Active Tablets 1 by Unknown 000 mouth every day Vitamin C Plus Active Chewtabs 500mg 1/2 tab Unknown [place] Hips 000 in the am and 1/2 [...] B. 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 Breast, right, excision: -- Invasive ductal adenocarcinoma of breast, with: Size: Approximately 40 mm see comment. Overall [place] grade: 2/3 (7/9 points). Tubule formation: 3. [...] Clear by greater than 5 mm.. ER, CA, Her2/jorge by immunohistochemistry with appropriate controls: ER: Positive, 3+, 100% of tumor cells. See comment. CA: Negative. See comment. Her2/jorge: Negative, (0+). See [...] performed at Main Lab DEPARTMENT OF PATHOLOGY, [address] [place] [address] Landon Turner M.D. Director [facility] # [id number] RUN DATE: 08/08/17 [facility] LAB LIVE PAGE 2 Patient: LAUREN PONCE [id number] (Continued) FINAL DIAGNOSIS (Continued) Margins: Tumor is [...] identified. Comment: Hormone receptor studies for ER, CA and HER-2 reported above are from prior case [id number]. The cauterized superior anterior margin of specimen [...] performed at Main Lab DEPARTMENT OF PATHOLOGY, [address] [place] [address] Landon Turner M.D. Director [facility] # [id number] RUN DATE: 08/08/17 [facility] LAB LIVE PAGE 3 Patient: LAUREN PONCE [id number] (Continued) GROSS DESCRIPTION (Continued) GROSS DESCRIPTION (Continued) [...] serially sectioned from lateral to medial and internet sales representative sections are submitted in cassettes [...] serially sectioned from superior to inferior and internet sales representative sections are submitted in cassettes [...] performed at Main Lab DEPARTMENT OF PATHOLOGY, [address] [place] [address] Landon Turner M.D. Director [facility] # [id number] Procedures Date CPT Code Description Status 08/03/2017 68208 Lymphadenectomy Axillary Complete Completed 08/03/2017 06161 Lymphadenectomy Axillary Complete Completed 08/03/2017 51488 Mastectomy Partial Completed 08/03/2017 22917 Mastectomy Partial Completed 08/03/2017 Mammogram Completed 06/29/2017 Mammogram Completed 05/26/2017 Mammogram Completed 09/12/2014 75892 ECHO Transthoracic, Real-Time 2D With Doppler And Color Completed Flow Encounters Type Date Location Provider CPT E/M Dx Office Visit 07/04/2017 [place] [address] C50.411 9:30a Of Client Service Administrator Office Visit 06/03/2014 [facility] Connie Rahman, 85944 715.96 10:15a Of C.M.A. RPA-C Office Visit 05/20/2014 [facility] Eulogio Tatum M.D. 89221 836.0 10:00a Of C.M.A. Office Visit 04/10/2014 [facility] ROBERT Irizarry 20026 836.0 8:45a Of C.M.A. Plan of Care 08/14/2017 - Ngozi Shelby, MDC50.411 Malig neoplm of upper-outer quadrant of right female breastFollow up:TBA; will call meanwhile I will tentatively schedule mastectomy and completion axillary dissection; if she changes her mind , we will adjust the schedule.
--- OUTSIDE RECORDS SUMMARY | 2017-09-08 13:22 | XMS REPORT ---
:1940 External Reference #:[id number] Author Organization [facility] Address [address] [address] Phone [phone] Care Team Providers Name Role Phone Arie Null MD Primary Care Physician Unavailable Payers Type Date Identification Numbers Payment Provider Subscriber Medicare Primary Policy Number: [id number] Medicare Michael Ponce PayID: [id number] [address] [place] [address] [facility] Part B Effective: 2012 Policy Number: BS Facets Gómez Ponce [id number] PayID: [id number] [address] [address] [place] [address] Problems Description No Information Family History Date Family Member(s) Problem(s) Comments General Heart Disease General Cancer General Diabetes Social History Type Date Description Comments Lives With Occupation Retired Smokeless Tobacco Never Used Smokeless Tobacco ETOH Use Occasionally consumes alcohol Smoking Patient is a former smoker quit [id number] Exercise Type/Frequency Does not exercise Allergies, Adverse Reactions, Alerts Date Description Reaction Status Severity Comments 07/04/2017 Penicillin Urticaria active 04/10/2014 NKDA inactive Medications Medication Date Status Form Strength Qnty SIG Indications Ordering Provider Multi-Vitamin Active Tablets 1 by Unknown 000 mouth every day Vitamin C Plus Active Chewtabs 500mg 1/2 tab Unknown [place] Hips 000 in the am and 1/2 [...] mouth B. every 4- [place], 6 hours MANAGER CHANNEL as needed No Active Hx Eulogio Medications Som - Shreya Tatum 017 Vital Signs Date Vital Result Comment 08/21/2017 Heart Rate 78 /min Respiratory Rate [...] [address]: Ngozi Shelby MD Acct: [id number] Unit: [id number] AGE: 76 Location: OR Re08/03/17 SEX: F Status: [facility] SPEC: [id number] CLARE: 08/03/[address]: Ngozi Shelby MD REQ: [id number] RECD: 08/03/17 STATUS: SOUT _ ORDERED: LEVEL 5/3 FINAL DIAGNOSIS 1. Breast, right, excision: -- Invasive ductal adenocarcinoma of breast, with: Size: Approximately 40 mm see comment. Overall [place] grade: 2/3 (7/9 points). Tubule formation: 3. [...] Clear by greater than 5 mm.. ER, OK, Her2/jorge by immunohistochemistry with appropriate controls: ER: Positive, 3+, 100% of tumor cells. See comment. OK: Negative. See comment. Her2/jorge: Negative, (0+). See comment. Microcalcifications: Not seen. Other findings: None. pTNM histopathologic stage: pT2N 1a M N/A. 2. Breast, right, excision: -- Invasive ductal adenocarcinoma of breast, with: Size: Approximately 16 mm. Overall [place] grade: 2/3 (7/9 points). Tubule formation: 3. Nuclear grade: 3. Mitotic count: 1. CONTINUED ON NEXT PAGE * ML=Testing performed at Main Lab DEPARTMENT OF PATHOLOGY, [address] [place] [address] Landon Turner M.D. Director [facility] # [id number] RUN DATE: 08/08/17 [facility] LAB LIVE PAGE 2 Patient: MICHAEL PONCE [id number] (Continued) FINAL DIAGNOSIS (Continued) Margins: Tumor is [...] identified. Comment: Hormone receptor studies for ER, OK and HER-2 reported above are from prior case [id number]. The cauterized superior anterior margin of specimen [...] performed at Main Lab DEPARTMENT OF PATHOLOGY, [address] [place] [address] Landon Turner M.D. Director [facility] # [id number] RUN DATE: 08/08/17 [facility] LAB LIVE PAGE 3 Patient: MICHAEL PONCE Anup [id number] (Continued) GROSS DESCRIPTION (Continued) GROSS DESCRIPTION (Continued) [...] serially sectioned from lateral to medial and service representative sections are submitted in cassettes [...] serially sectioned from superior to inferior and service representative sections are submitted in cassettes [...] performed at Main Lab DEPARTMENT OF PATHOLOGY, [address] [place] [address] Landon Turner M.D. Director [facility] # [id number] Procedures Date CPT Code Description Status 08/03/2017 21950 Lymphadenectomy Axillary Complete Completed 08/03/2017 38753 Lymphadenectomy Axillary Complete Completed 08/03/2017 78664 Mastectomy Partial Completed 08/03/2017 93638 Mastectomy Partial Completed 08/03/2017 Mammogram Completed 06/29/2017 Mammogram Completed 05/26/2017 Mammogram Completed 09/12/2014 35481 ECHO Transthoracic, Real-Time 2D With Doppler And Color Completed Flow Encounters Type Date Location Provider CPT E/M Dx Office Visit 07/04/2017 [facility] [place] [address] C50.411 9:30a Of [facility] Office Visit 06/03/2014 [facility] Connie Rahman, 50942 715.96 10:15a Of C.M.A. RPA-C Office Visit 05/20/2014 [facility] Eulogio Tatum M.D. 04649 836.0 10:00a Of C.M.A. Office Visit 04/10/2014 [facility] Cherrie Garcia RPA-C 44162 836.0 8:45a Of C.M.A. Plan of Care Future Appointment(s):08/22/2017 1:45 pm - ISACC Poe at [facility]08/21/2017 - Ngozi Shelby, MDC50.411 Malig neoplm of upper- outer quadrant of right female breastFollow up:tomorrow with CLF or CE or CP, or BA
[2017-09-08] MEDS ORDERED: Propofol* 10 MG/ML 20 ML BTL IV PUSH ONE (13:46)
[2017-09-08] MEDS ORDERED: Lidocaine 2% PF * 5 ML VIAL ONE (13:47)
[2017-09-08 14:35] VITALS: BP 147/73
--- NOTE | 2017-09-08 14:46 | RAD ---
INDICATION: Status post PowerPort central venous catheter placement. COMPARISON: Comparison is made with a prior chest x-ray study from February 21, 2007. TECHNIQUE: A portable view of the chest was obtained. FINDINGS: There is a power port central venous catheter entering on the left side. The catheter tip projects overlying the superior vena cava. The heart is within normal limits in size. The lungs are underinflated and clear. No pneumothorax is seen. Several surgical clips project in the right axillar region most consistent with a prior axillary node dissection. IMPRESSION: STATUS POST POWERPORT CENTRAL VENOUS CATHETER PLACEMENT, NO EVIDENCE FOR ACUTE FINDING.
--- NOTE | 2017-09-08 16:15 | RAD ---
CPT II Codes: 6045F INDICATION: Breast cancer TECHNIQUE: Intraoperative fluoroscopy was provided during left subclavian vein Mediport placement.. FINDINGS: 2 spot films depict placement of a left subclavian vein Mediport. Fluoroscopy time: 31.9 seconds IMPRESSION: As above.
--- NOTE | 2017-09-09 09:38 | OP ---
CC: Dr. Arie Null; Dr. Migdalia Cho * DATE OF OPERATION: 09/08/17 - [facility] DATE OF : 44 SURGEON: Dr. Shelby. SELENIUM PLANT OPERATOR: There was no surgical assistant certified for this case. PRE-OP DIAGNOSIS: Right breast cancer POST-OP DIAGNOSIS: Right breast cancer OPERATIVE PROCEDURE: PowerPort placement INDICATIONS: Ms. Coffey is a 77-year-old woman who has been managed for her right breast cancer who now needs chemotherapy. Plans were therefore made for surgical intervention. DESCRIPTION OF PROCEDURE: She was brought to the operating room, placed on the OR table in a supine position and given IV sedation. The left chest wall was prepped and draped in usual sterile fashion. After infiltrating with the local anesthetic, using a Seldinger technique, a wire was placed in the left subclavian vein under fluoroscopic visualization. Then a port pocket was then created by infiltrating the skin on the chest wall anteriorly with local anesthetic, making an incision and elevating the skin inferior to the incision using electrocautery. Once the pocket was of a size to accommodate the port, the catheter was tunneled from the wire exit site to the port pocket site and then the dilator and introducer were fed over the wire into the subclavian vein under fluoroscopic visualization and the dilator and wire were removed. The catheter having then flushed was advanced through the introducer under fluoroscopic visualization and then the introducer was peeled away. The catheter was trimmed to an appropriate length and attached to the port after its position in the superior vena cava was confirmed and then the port was secured to the chest wall with 2-0 Prolene stitches. The port pocket was closed using 3-0 Polysorb in the subcutaneous layer and the skin was closed with 4-0 Surgipro in a subcuticular fashion. The small skin gunnar that have been made at the wire exit site was closed with a single stitch of 4-0 Prolene as well. Steri- Strips and a dry sterile dressing were applied after the function of the port was confirmed. All sponge and instrument counts were correct. The patient tolerated the procedure well and was transferred to Recovery in a stable condition. [id number]/[facility] #: [id number] [facility]
== END 2017-09-08 15:15 | disposition home or self-care (01) ==
LOC: OR 12:08
PROVIDERS: ATTEND Surgery
DX: C50.411 Malignant neoplasm of upper-outer quadrant of right female breast (principal); Z87.891 Personal history of nicotine dependence; Z17.0 Estrogen receptor positive status [ER+]
CPT/HCPCS: 71010; 76000; J1642; J2250; J2704; J3010

== ENCOUNTER 2017-09-21 21:46 | Observation (INO) | payer MEDICARE, BC ==
[2017-09-21 23:15] LABS: Comments Flag Yes; Hematocrit 32 % (35-47); Hemoglobin 10.9 g/dl (12.0-16.0); Mean Corpuscular HGB Conc 34 g/dl (31-36); Mean Corpuscular Hemoglobin 32 pg (27-31); Mean Corpuscular Volume 94 fL (80-97); Mean Platelet Volume 9 um3 (7.4-10.4); Red Blood Count 3.46 10^6/ul (4.0-5.4); Red Cell Distribution Width 14 % (10.5-15); White Blood Count 1.1 10^3/ul (3.5-10.8)
[2017-09-21 23:18] LABS: Add Diff/Slide Review? Slide Review Added
[2017-09-21 23:29] LABS: Albumin 3.5 g/dL (3.2-5.2); BUN/Creatinine Ratio 18.2 (8-20); Calcium 9.2 mg/dL (8.6-10.3); EGFR Non-African American 73.1 (>60); Globulin 2.8 g/dL (2-4); Potassium 4.1 mmol/L (3.5-5.0); Total Bilirubin 0.8 mg/dL (0.2-1.0); Total Protein 6.3 g/dL (6.4-8.9)
[2017-09-22 00:37] LABS: Urine Bilirubin Negative (Negative); Urine Glucose Negative (Negative); Urine Nitrite Negative (Negative)
[2017-09-22] MEDS ORDERED: cefTAZidime 2 GM in NS 0.9% 100 ML* 100 ML IVPB ONE (01:13)
[2017-09-22] MEDS ORDERED: Acetaminophen TAB* 325 MG PO PRN (01:42)
[2017-09-22] MEDS ORDERED: NS 0.9% 1000 ML* 1,000 ML IV SCH ×2 (02:00→10:31)
--- NOTE | 2017-09-22 03:26 | HP ---
CC: Dr. Wilkinson; Dr. Cho; Dr. Shelby from Surgery * HISTORY AND PHYSICAL: DATE OF ADMISSION: 09/22/17 PRIMARY CARE PROVIDER: Dr. Cho. CHIEF COMPLAINT: Fever. HISTORY OF PRESENT ILLNESS: Lauren Coffey is a 77-year-old female who is status post right-sided mastectomy in August of 2017 for breast cancer diagnosed a month earlier. The patient stated that she had lumpectomy in July of 2017 and right- sided mastectomy in August of 2017. She had a PowerPort placed in her left chest in the beginning of September 2017 and currently is status post first chemotherapy that was infused on 09/22/17. She stated that she had been doing fine. Apart from that that for the past 3 days, she had been having loose stools. She describes them as loose stools 3 to 4 times a day. She stated that it is "not diarrhea." She denies abdominal pain, but she feels "discomfort" in the entire abdomen. She noted that she had a fever of 101 degrees within the past 24 hours. She has no other symptoms. She presented to the ED and she was noted to be neutropenic with absolute neutrophil count of 0.5. She is going to be placed on overnight observation with diagnosis of neutropenic fever. PAST MEDICAL HISTORY: 1. Status post right-sided mastectomy for breast cancer, currently undergoing chemotherapy. 2. History of hearing loss. 3. History of spinal stenosis. 4. Osteoarthritis. 5. History of lower back pain. 6. History of status post D and C and hysteroscopy and salpingectomy in the past. MEDICATIONS: Include: 1. Avfs-lyb-vnylvuf glucosamine with chondroitin. 2. Vitamin B supplement. 3. Calcium supplement. 4. Probiotic. ALLERGIES: PENICILLIN causes rash. FAMILY HISTORY: Mother diagnosed with breast cancer at the age of 85, at the age of 90. SOCIAL HISTORY: The patient is and her surrogate is her . She quit smoking approximately 19 years ago. She has history of 10-pack year smoking. She drinks alcohol rarely. She denies any illicit substance use. REVIEW OF SYSTEMS: Please see history of present illness. In addition to the above mentioned, the patient stated that in the area after mastectomy, she developed "skin fold." She has had problems with yeast infection in the area. She also noted that she has a small "spot" in her right axillary region after the mastectomy that is opened and she is using Silvadene dressing changes to the area. All the remaining 12 systems were reviewed with the patient and were otherwise negative. PHYSICAL EXAMINATION GENERAL: The patient is a pleasant 77-year-old female who is in no acute distress, alert, awake and oriented x3. VITAL SIGNS: Blood pressure of 123/53, heart rate of 93 and regular, respiratory rate 16, oxygen saturation 97% on room air, temperature of 98.8. HEENT: Head: Atraumatic, normocephalic. Eyes: Pupils are equal and reactive to light and accommodation. Oropharynx clear. Mucosa moist. NECK: Supple. No JVD. No bruits bilaterally. RESPIRATORY: Clear to auscultation bilaterally. CARDIOVASCULAR: Regular rate and rhythm. No murmur. ABDOMEN: Soft and nontender. Bowel sounds are present in all 4 quadrants. EXTREMITIES: There is trace bilateral ankle edema. Pulses are +2 bilaterally. There is no clubbing, cyanosis. NEURO EVALUATION: Speech clear. Cranial nerves II through XII grossly intact. Motor strength is 5/5 bilaterally. SKIN: On evaluation of the skin, the patient has ecchymotic areas in the area of the left-sided subclavian PowerPort insertion. There is no evidence of cellulitis. The right mastectomy wound is healing well. She does have a tiny skin fold that was approximately 1 cm deep that has a little bit of candidal intertrigo present. There is no evidence of invasive infection. The scar that is reaching her right axillary region has a tiny area of dehiscence. It is approximately 1 cm long. It is draining serous fluid. There is no evidence of infection. There is no evidence of cellulitis. The remaining skin evaluation is unremarkable. DIAGNOSTIC STUDIES/LAB DATA: Showed white blood cell count of 11.1, hemoglobin 10.9, hematocrit of 32, and platelets of 54. Absolute neutrophil count was 0.5. Sodium was 138, potassium of 4.1, chloride 100, carbon dioxide 22, BUN 14, creatinine 0.77. Liver function tests unremarkable. Lactic acid of 0.9. Urinalysis unremarkable. Portable chest x-ray reviewed by myself prior to the official radiologist's report does not show any infiltrates. ASSESSMENT AND PLAN: 1. Neutropenic fever. The patient has had 3 to 4 bowel movements a day that are loose. She does not have significant abdominal tenderness on evaluation, but she has a sensation of "discomfort." At this point, I will hold the patient 's probiotics due to the patient's neutropenia. Dr. Wilkinson recommended to the ED physician to treat the patient with ceftazidime that is going to be continued. The patient also is going to be placed on gentle intravenous hydration. 2. In regards to the patient's candidal intertrigo on the right mastectomy site , nystatin cream is going to be provided on a daily basis. 3. In regards to the patient's small area of wound dehiscence, it does not appear to be infected. 4. For DVT prophylaxis, the patient is going to be placed on sequential compression devices and no heparin is going to be started due to thrombocytopenia. 5. The patient's code status is full and her surrogate is her . TIME SPENT: Approximately 65 minutes was spent on admission of this patient, more than half that time was spent [id number] with the patient during the interview and physical exam. [id number]/[facility] #: [id number] MTDD
[2017-09-22] MEDS ORDERED: Heparin VIAL(*) 5000 UNITS/ML VIAL (FIVE THOUSAND) SUBCUT SCH (06:00)
--- NOTE | 2017-09-22 06:14 | ED ---
Isaiah Hernández Angela, scribed for Juan Holland on 09/21/17 at 2224 . HPI Febrile Illness - HPI Summary HPI Summary: This pt is a 77 y/o female, with history of breast CA, presenting to [facility] c/o fever and loose stools since yesterday. Pt reports that she was diagnosed with breast cancer on 2016. Today, she called Dr. Wilkinson, who advised her to come to the ED for lab work. She states her maximum temperature today was 101 F. Pt notes her right breast mastectomy was on August 18, 2017. She reports her first chemotherapy was on September 08 and her next one is on September 26. Pt denies sore throat, cough, abd pain, chest pain, nausea, vomiting. - History of Current Complaint Chief Complaint: EDFever Time Seen by Provider: 09/21/17 22:10 Hx Obtained From: Patient Onset/Duration: Started Days Ago, Atraumatic, Still Present Timing: Lasting Days Pain Intensity: 0 Aggravating Factors: Nothing Alleviating Factors: Nothing Associated Signs and Symptoms: Other: - POS: loose stools. NEG: cough, sore throat, abd pain, chest pain, nausea - Additional Pertinent History Primary Care Physician: [id number] - Allergy/Home Medications Allergies/Adverse Reactions: Allergies Allergy/AdvReac Type Severity Reaction Status Date / Time Penicillins Allergy Mild RASH IF Verified 09/21/17 21:58 TAKEN FOR LONG PERIOD OF TIME Adhesive Tape Allergy Unknown Verified 09/21/17 21:58 Reaction Details Lactose Intolerance (GI) Allergy Unknown Verified 09/21/17 21:58 Reaction Details PMH/Surg Hx/FS Hx/Imm Hx Endocrine/Hematology History: Denies: Hx Diabetes Cardiovascular History: Denies: Hx Hypertension, Other Cardiovascular Problems/Disorders Respiratory History: Denies: Other Respiratory Problems/Disorders GI History: Denies: Other GI Disorders History: Reports: Other Problems/Disorders - NEPHRITIS AT AGE 7 Denies: Hx Renal Disease Musculoskeletal History: Reports: Hx Arthritis - LOW BACK, KNEE, Denies: Other Musculoskeletal History Sensory History: Reports: Hx Cataracts - BILATERAL, Hx Contacts or Glasses - GLASSES, Hx Hearing Aid - BILATERAL Opthamlomology History: Reports: Hx Cataracts - BILATERAL, Hx Contacts or Glasses - GLASSES Neurological History: Denies: Other Neuro Impairments/Disorders Psychiatric History: Reports: Hx Depression - MILD - Cancer History Cancer Type, Location and Year: RIGHT BREAST Hx Chemotherapy: No Hx Radiation Therapy: No - Surgical History Surgery Procedure, Year, and Place: 1963 RIGHT EAR STAPENDECTOMY, [place]. 2000 HYSTEROSCOPY D& C, [facility]. 2006 AND 2011 COLONOSCOPY, [facility]. 2013 RIGHT EYE CATARACT EXTRACTION WITH IOL IMPLANT, [facility]. RT LUMPECTOMY. August 18, 2017 - right breast mastectomy Hx Anesthesia Reactions: No Infectious Disease History: No Infectious Disease History: Denies: Traveled Outside the [place] in Last 30 Days - Family History Known Family History: Positive: Other - Mother: breast CA - Social History Alcohol Use: Weekly Alcohol Amount: 2 Substance Use Type: Reports: None Smoking Status (MU): Former Smoker Type: Cigarettes Amount Used/How Often: LESS THEN 1PPD 20 YRS Have You Smoked in the Last Year: No Review of Systems Positive: Fever Negative: Sore Throat Negative: Chest Pain Negative: Cough Gastrointestinal: Other - loose stools Negative: Abdominal Pain, Vomiting, Nausea All Other Systems Reviewed And Are Negative: Yes Physical Exam - Summary Physical Exam Summary: Appearance: Well appearing, no pain distress Skin: warm, dry, reflects adequate perfusion Head/face: normal Eyes: EOMI, MADY ENT: normal Neck: supple, nontender Respiratory: CTA, breath sounds present Cardiovascular: RRR, pulses symmetrical Abdomen: nontender, soft Bowel: present Musculoskeletal: normal, strength/ROM intact Neuro: normal, sensory motor intact, A&Ox3 Triage Information Reviewed: Yes Vital Signs On Initial Exam: Initial Vitals Temp Pulse Resp BP Pulse Ox 98.8 F 93 16 123/53 97 09/21/17 21:50 09/21/17 21:50 09/21/17 21:50 09/21/17 21:50 09/21/17 21:50 Vital Signs Reviewed: Yes Diagnostics - Vital Signs Vital Signs Temp Pulse Resp BP Pulse Ox 09/21/17 21:50 98.8 F 93 16 123/53 97 - Laboratory Result Diagrams: 09/21/17 23:00 09/21/17 23:00 Lab Statement: Any lab studies that have been ordered have been reviewed, and results considered in the medical decision making process. - Radiology Chest XR Xray Interpretation: No Acute Changes - negative chest XR. Radiology Interpretation Completed By: ED Physician Course/Dx - Course Course Of Treatment: Pt is a 77 y/o female, with history of breast CA currently undergoing chemotherapy, who presents with fever and loose stools since yesterday. Bloodwork and chest XR were obtained. Chest XR is negative. I discussed pt care with Dr. Wilkinson, who recommends admission to the hospitalist. I also discussed the pt's case with Dr. Greer, hospitalist, who has agreed to admit the pt. - Diagnoses Provider Diagnoses: Fever, absolute neutropenia - Provider Notifications Discussed Care Of Patient With: Colton Wilkinson Time Discussed With Above Provider: 01:10 Instructed by Provider To: Other - I discussed pt care with Dr. Wilkinson, oncologist , who recommends admission to hospitalist. [01:15] I discussed the pt's case with Dr. Greer, hospitalist, who has agreed to admit the pt. Discharge - Discharge Plan Condition: Stable Disposition: ADMITTED TO [facility] Referrals: Arie Null MD [Primary Care Provider] - The documentation as recorded by the Isaiah mota Angela accurately reflects the service I personally performed and the decisions made by , Juan Holland.
--- NOTE | 2017-09-22 08:02 | RAD ---
INDICATION: Fever and loose stools since September 20, 2014. History of breast carcinoma. Last chemotherapy treatment September 12, 2017. COMPARISON: September 08, 2017 chest radiograph and August 16, [address] TECHNIQUE: Dual energy PA and routine lateral views of the chest were obtained. REPORT: Minimal linear atelectasis at the RIGHT lung base without significant change. New more central mild alveolar consolidation at the RIGHT lung base likely involving the RIGHT middle lobe is concerning for pneumonia given the clinical context. Negative for pleural effusion or pneumothorax. Tip of LEFT chest port at level of superior vena cava. Negative for cardiomegaly. Unremarkable central pulmonary vasculature and mediastinal contours. RIGHT breast and axilla surgical clips. IMPRESSION: New mild alveolar consolidation at the RIGHT lung base is suspicious for pneumonia given the clinical context. Negative for pleural effusion.
[2017-09-22] MEDS: Nystatin CREAM* 15 GM TUBE TOPICAL SCH ×2 (09:53→22:42)
[2017-09-22] MEDS: cefTAZidime* 1 GM in NS 0.9% 50 ML* 50 ML IVPB SCH ×2 (09:53→17:37)
[2017-09-22] MEDS ORDERED: Ondansetron TAB* 4 MG PO PRN (09:54)
--- NOTE | 2017-09-22 09:54 | PN ---
Progress Note - Progress Note Date of Service: 09/22/17 SOAP: Subjective: []Feeling better than yesterday. Still having diarrhea. Feels like she got a GI bug. No cramping however and no foul smell. Understands reasons for admission. Medications: Acetaminophen (Tylenol Tab*) 650 mg PO Q4H PRN PRN Reason: FEVER/PAIN Ceftazidime 1 gm/ Sodium (Chloride) 50 mls @ 100 mls/hr IVPB Q8H COUNTS INCLUDE 234 BEDS AT THE [facility] Sodium Chloride (Ns 0.9% 1000 Ml*) 1,000 mls @ 100 mls/hr IV PER RATE COUNTS INCLUDE 234 BEDS AT THE [facility] Stop: 09/22/17 11:59 Last Admin: 09/22/17 03:11 Dose: 100 mls/hr Nystatin (Nystatin Cream*) 1 applic TOPICAL BID COUNTS INCLUDE 234 BEDS AT THE [facility] Objective: [] Vital Signs Temp Pulse Resp BP Pulse Ox 98.1 F 78 16 132/65 98 09/22/17 07:17 09/22/17 07:17 09/22/17 07:55 09/22/17 07:17 09/22/17 07:17 A&Ox3, EOMI, VICTOR, neuro grossly non-focal HRR, S1S2 LS clear with even and non-labored respirations +BS, abd. soft and on-tender Right mastectomy site without exudate, +giana appearing Laboratory Results - last 24 hr 09/21/17 09/21/17 09/21/17 23:00 23:00 23:00 WBC 1.1 L RBC 3.46 L Hgb 10.9 L Hct 32 L MCV 94 MCH 32 H MCHC 34 RDW 14 Plt Count 54 L MPV 9 Neut % (Auto) 42.9 Lymph % (Auto) 42.9 Price % (Auto) 12.1 H Eos % (Auto) 1.3 Baso % (Auto) 0.8 Absolute Neuts (auto) 0.5 L* Absolute Lymphs (auto) 0.5 L Absolute Monos (auto) 0.1 Absolute Eos (auto) 0 Absolute Basos (auto) 0 Absolute Nucleated RBC 0 Nucleated RBC % 0.3 INR (Anticoag Therapy) 1.02 APTT 30.9 Sodium 130 L Potassium 4.1 Chloride 100 L Carbon Dioxide 22 Anion Gap 8 BUN 14 Creatinine 0.77 Est GFR ( Amer) 94.0 Est GFR (Non-Af Amer) 73.1 BUN/Creatinine Ratio 18.2 Glucose 113 H Lactic Acid Calcium 9.2 Total Bilirubin 0.80 AST 16 ALT 15 Alkaline Phosphatase 82 Total Protein 6.3 L Albumin 3.5 Globulin 2.8 Albumin/Globulin Ratio 1.3 Urine Color Urine Appearance Urine pH Ur Specific [place] Urine Protein Urine Ketones Urine Blood Urine Nitrate Urine Bilirubin Urine Urobilinogen Ur Leukocyte Esterase Urine Glucose Influenza A (Rapid) Influenza B (Rapid) 09/21/17 09/22/17 09/22/17 23:00 00:02 03:10 WBC RBC Hgb Hct MCV MCH MCHC RDW Plt Count MPV Neut % (Auto) Lymph % (Auto) Price % (Auto) Eos % (Auto) Baso % (Auto) Absolute Neuts (auto) Absolute Lymphs (auto) Absolute Monos (auto) Absolute Eos (auto) Absolute Basos (auto) Absolute Nucleated RBC Nucleated RBC % INR (Anticoag Therapy) APTT Sodium Potassium Chloride Carbon Dioxide Anion Gap BUN Creatinine Est GFR ( Amer) Est GFR (Non-Af Amer) BUN/Creatinine Ratio Glucose Lactic Acid 0.9 Calcium Total Bilirubin AST ALT Alkaline Phosphatase Total Protein Albumin Globulin Albumin/Globulin Ratio Urine Color Yellow Urine Appearance Cloudy Urine pH 6.0 Ur Specific [place] 1.004 L Urine Protein Negative Urine Ketones Trace H Urine Blood Negative Urine Nitrate Negative Urine Bilirubin Negative Urine Urobilinogen Negative Ur Leukocyte Esterase Negative Urine Glucose Negative Influenza A (Rapid) Negative Influenza B (Rapid) Negative Assessment: []77 yo female admitted with febrile neutropenia following C1 ddAC. She is feeling well, however as she still has diarrhea and cultures are pending I would like to have her stay a full 24 hours prior to d/c. Plan for d/c tomorrow AM with levaquin. Plan: []1. Diarrhea: c.diff toxin pending but once negative will start imodium 2. Febrile neutropenia: cont. reverse iso, cont. cefepime, follow labs 3. Mastectomy scar: cont. nystatin and silvadene as ordered by surgery
[2017-09-22] MEDS: Silver Sulfadiazine 1%* 20 GM TOPICAL SCH (12:06)
[2017-09-22] MEDS: metroNIDAZOLE IV 500 MG/100ML* 500 MG/100 ML BAG IVPB SCH ×2 (12:06→22:28)
[2017-09-23] MEDS: cefTAZidime* 1 GM in NS 0.9% 50 ML* 50 ML IVPB SCH (03:42)
[2017-09-23] MEDS: metroNIDAZOLE IV 500 MG/100ML* 500 MG/100 ML BAG IVPB SCH (05:45)
[2017-09-23 08:57] VITALS: BP 135/59
--- NOTE | 2017-09-23 09:27 | PN ---
Progress Note - Progress Note Date of Service: 09/23/17 SOAP: Subjective: []She is doing a little better today. Had difficulty with IV overnight and port not working well. No labs today. No fevers. Still has bowl discomfort. No nausea and is eating well. Acetaminophen (Tylenol Tab*) 650 mg PO Q4H PRN PRN Reason: FEVER/PAIN Heparin Sodium (Porcine) (Heparin Flush Port (Ivad)) 5 ml FLUSH DAILY [facility] PRN Reason: Protocol Ceftazidime 1 gm/ Sodium (Chloride) 50 mls @ 100 mls/hr IVPB Q8H [facility] Last Admin: 09/23/17 03:42 Dose: 100 mls/hr Metronidazole/Sodium Chloride (Flagyl 500 Mg Ivpb*) 500 mg in 100 mls @ 100 mls /hr IVPB Q8H [facility] Last Admin: 09/23/17 05:45 Dose: 100 mls/hr Nystatin (Nystatin Cream*) 1 applic TOPICAL BID [facility] Last Admin: 09/22/17 22:42 Dose: 1 applic Ondansetron HCl (Zofran Tab*) 4 mg PO Q6H PRN PRN Reason: NAUSEA Silver Sulfadiazine (Silvadine 1%*) 1 applic TOPICAL DAILY [facility] Last Admin: 09/22/17 12:06 Dose: 1 applic Objective: [] Vital Signs Temp Pulse Resp BP Pulse Ox 98.2 F 75 18 135/59 98 09/23/17 07:40 09/23/17 07:40 09/23/17 07:40 09/23/17 07:40 09/23/17 07:40 HEENT - Mucosa moist, no thrush CTA RRR S1S2 no breast exam today. Mild distention, normal bowl sounds, non tender, no rebound. Ext no edema, good pulses MK- back pain, cannot lie flat Assessment: []77 yo female admitted with febrile neutropenia following C1 ddAC. She is feeling well, however as she still some abdominal pain. She is C. Diff positive , afebrile since admission. Plan: []1. Diarrhea. Will continue Flagyl as 500 mg po q 8 hrs, stop Ceftazidime 2. Febrile neutropenia. Culture negative and if ANC > 1000 today can discharge on Flagyl alone. 3. Mastectomy scar: cont. nystatin and silvadene as ordered by surgery 4. Chemotherapy on Monday will likely be delayed. Will need follow up next week with Dr. Cho.
[2017-09-23 09:46] LABS: Hematocrit 31 % (35-47); Hemoglobin 10.4 g/dl (12.0-16.0); Mean Corpuscular HGB Conc 34 g/dl (31-36); Mean Corpuscular Hemoglobin 32 pg (27-31); Mean Corpuscular Volume 94 fL (80-97); Mean Platelet Volume 9 um3 (7.4-10.4); Red Cell Distribution Width 14 % (10.5-15)
[2017-09-23 09:52] LABS: Add Diff/Slide Review? Manual Diff Added; Comments Flag Yes
[2017-09-23 09:55] LABS: Potassium 3.7 mmol/L (3.5-5.0)
[2017-09-23 09:56] LABS: BUN/Creatinine Ratio 15.1 (8-20); Calcium 8.8 mg/dL (8.6-10.3); EGFR Non-African American 77.7 (>60)
[2017-09-23] MEDS ORDERED: metroNIDAZOLE TAB* 250 MG PO SCH (10:00)
[2017-09-23 10:15] LABS: Eosinophils % 2 % (0-6); Immature Granulocytes 3 % (0-9); Neutrophil % 42 % (38-83); Reactive Lymph % 2 % (0-6)
[2017-09-23 10:16] LABS: Add Path Review? YES; Hypochromasia 1+; Polychromasia 1+
[2017-09-23] MEDS: Nystatin CREAM* 15 GM TUBE TOPICAL SCH (10:19)
[2017-09-23] MEDS: Silver Sulfadiazine 1%* 20 GM TOPICAL SCH (10:19)
--- NOTE | 2017-09-23 11:46 | DS ---
DISCHARGE SUMMARY: DATE OF ADMISSION: 09/22/17 DATE OF DISCHARGE: 09/23/17 DISCHARGE DIAGNOSES: 1. Neutropenic fever. 2. Clostridium difficile colitis. 3. Breast cancer. HOSPITAL COURSE: Came in after having a fever of 102 at home and presented to the ER with ANC of 500 . She also complained of loose stools and abdominal pain starting the day before admission. She was brought in and placed on ceftazidime with C. diff sent. Workup for neutropenic fever was negative i ncluding cultures, chest x-ray, urine. On the morning of 09/22/17, her C. diff came back positive. S he was started on Flagyl 500 mg t.i.d. She has remained afebrile during the admission. Stools are s oft today, but no longer diarrhea. She is feeling a little bit better. She is eating well. ANC thi s morning is over 1000 and we will plan discharge home. DISCHARGE MEDICATIONS: 1. Metronidazole 500 mg p.o. t.i.d. 2. B complex vitamin 1 a day. 3. Calcium 500 mg daily. 4. Glucosamine and chondroitin 1 tab b.i.d. 5. Multivitamins. 6. Probiotic 1 q.a.m. 7. Vitamin C 250 daily. We will have her follow up next week with Dr. Cho. Chemotherapy due next week will likely be de layed at least 1 week. She is to call our office with any concerns over the weekend. [id number]/[facility] #: [id number]
== END 2017-09-23 11:15 | disposition home or self-care (01) ==
LOC: ED 21:46 → MED 09-22 01:17
PROVIDERS: ADMIT Internal Medicine; ATTEND Internal Medicine Hematology & Oncology
DX: D70.9 Neutropenia, unspecified (principal); R50.81 Fever presenting with conditions classified elsewhere; A04.72 Enterocolitis due to Clostridium difficile, not specified as recurrent; C50.911 Malignant neoplasm of unspecified site of right female breast; Z87.891 Personal history of nicotine dependence; L30.4 Erythema intertrigo; M19.90 Unspecified osteoarthritis, unspecified site; M48.00 Spinal stenosis, site unspecified; M54.5 Low back pain; H91.90 Unspecified hearing loss, unspecified ear
CPT/HCPCS: 36415; 71020; 80048; 80053; 81003; 83605; 85025; 85060; 85610; 85730; 87040; 87493; 87502; 96361; 96365; 96366; 99231; 99239; 99283; A9270-GY; G0378; J0713; J1642; J3490

== ENCOUNTER 2018-06-02 15:13 | Emergency (ER) | payer MEDICARE, BC ==
[2018-06-02 15:21] VITALS: BP 130/67
--- NOTE | 2018-06-02 15:25 | UC ---
Skin Complaint HPI - HPI Summary HPI Summary: 77 yo female presents with ?bug bite to back of right shoulder sustained 2-3 weeks ago. She tells me that around that time she noticed some redness and mild pain to the area. Does not remember being bitten by anything. About a week ago she had a friend "pop" the area and says a lot of pus came out. Here today because the area is still mildly tender, swollen, and red. Denies fever, chills. - History of Current Complaint Chief Complaint: UCSkin Time Seen by Provider: 06/02/18 15:25 Stated Complaint: SKIN COMPLAINT Hx Obtained From: Patient Onset/Duration: Gradual Onset Onset Severity: Mild Current Severity: Mild Pain Intensity: 2 Pain Scale Used: 0-10 Numeric - Allergy/Home Medications Allergies/Adverse Reactions: Allergies Allergy/AdvReac Type Severity Reaction Status Date / Time Adhesive Tape Allergy Unknown Verified 06/02/18 15:21 Reaction Details lactose Allergy Unknown Verified 06/02/18 15:21 Reaction Details Penicillins Allergy Rash Verified 06/02/18 15:21 Home Medications: Home Medications Cholecalciferol (Vitamin D3) [Vitamin D3] 1,000 unit PO 06/02/18 [History] Review of Systems Constitutional: Negative Skin: Other - Bug bite right posterior shoulder Respiratory: Negative Cardiovascular: Negative Neurovascular: Negative Neurological: Negative Psychological: Negative All Other Systems Reviewed And Are Negative: Yes PMH/Surg Hx/FS Hx/Imm Hx - Additional Past Medical History Additional PMH: BRCA - Surgical History Surgical History: Yes Surgery Procedure, Year, and Place: 1962 RIGHT EAR STAPENDECTOMY, [place]. 2000 HYSTEROSCOPY D& C, [facility] [place]. 2006 AND 2011 COLONOSCOPY, [facility] [place]. 2013 RIGHT EYE CATARACT EXTRACTION WITH IOL IMPLANT, [facility] [place]. RT LUMPECTOMY. August 18, 2017 - right breast mastectomy - Family History Known Family History: Positive: Other - Mom breast cancer - Social History Occupation: Retired Lives: With Family Alcohol Use: Weekly Alcohol Amount: 2 Substance Use Type: None Smoking Status (MU): Former Smoker Type: Cigarettes Amount Used/How Often: LESS THEN 1PPD 20 YRS Have You Smoked in the Last Year: No When Did the Patient Quit Smoking/Using Tobacco: 1978 - Immunization History Most Recent Influenza Vaccination: 2017 Most Recent Pneumonia Vaccination: 2014 Physical Exam - Summary Physical Exam Summary: GENERAL: NAD. WDWN. No pain distress. SKIN: Right posterior shoulder: 1.0cm moderately erythematous abscess with two central bite marquez resembling a spider bite. Mild TTP and induration. No streaking, bleeding, or drainage. NECK: Supple. Nontender. No lymphadenopathy. CHEST: No accessory muscle use. Breathing comfortably and in no distress. CV: Pulses intact. Cap refill <2seconds NEURO: Alert. CN II-XII grossly intact. PSYCH: Age appropriate behavior. Triage Information Reviewed: Yes Vital Signs: Initial Vital Signs Temp 98.2 F 06/02/18 15:16 Pulse 100 06/02/18 15:16 Resp 18 06/02/18 15:16 BP 130/67 06/02/18 15:16 Pulse Ox 99 06/02/18 15:16 Vital Signs Reviewed: Yes Course/Dx - Course Course Of Treatment: A time out was performed, witnessed, and signed. The area was cleansed with an alcohol swab. An 18G needle was used to holley the center of the abscess. Copious yellow purulent matter was able to be expressed. The wound was bandaged with telfa . Pt tolerated procedure well. Will place her on anbx for infection. - Diagnoses Provider Diagnoses: Abscess due to spider bite skin right posterior shoulder Procedures - Incision and Drainage Right Posterior Shoulder Anesthesia: Other - None Instrument(s): Needle - 18G Packing: Other - None Discharge - Sign-Out/Discharge Documenting (check all that apply): Patient Departure All imaging exams completed and their final reports reviewed: No Studies - Discharge Plan Condition: Stable Disposition: HOME Prescriptions: Cephalexin CAP* [Keflex CAP*] 500 mg PO BID #14 cap Patient Education Materials: Insect Bite or Sting (ED), Abscess (ED) Referrals: Arie Null MD [Primary Care Provider] - Additional Instructions: If you develop a fever, shortness of breath, chest pain, new or worsening symptoms - please call your PCP or go to the ED. 1) Keep the area covered daily until well healed - Billing Disposition and Condition Condition: STABLE Disposition: Home
--- NOTE | 2018-06-04 09:05 | UC ---
- Progress Note Progress Note: 06/04/2018 Wound culture negative for MRSA and S.Aureus. Pt Rx Keflex PO Awaiting for final report. No change. Helen Wolf PA-C Discharge - Sign-Out/Discharge Documenting (check all that apply): Patient Departure - D/c home All imaging exams completed and their final reports reviewed: No Studies - Discharge Plan Condition: Stable Disposition: HOME Prescriptions: Cephalexin CAP* [Keflex CAP*] 500 mg PO BID #14 cap Patient Education Materials: Insect Bite or Sting (ED), Abscess (ED) Referrals: Arie Null MD [Primary Care Provider] - Additional Instructions: If you develop a fever, shortness of breath, chest pain, new or worsening symptoms - please call your PCP or go to the ED. 1) Keep the area covered daily until well healed - Billing Disposition and Condition Condition: STABLE Disposition: Home
== END 2018-06-02 15:50 | disposition home or self-care (01) ==
LOC: UCEAST 15:13
DX: L03.113 Cellulitis of right upper limb (principal); T63.301A Toxic effect of unspecified spider venom, accidental (unintentional), initial encounter; Y92.9 Unspecified place or not applicable
CPT/HCPCS: 10060; 87070; 87205; 87640; 87641; 99212; G0463

== ENCOUNTER 2022-04-22 16:53 | Observation (INO) ==
[2022-04-22 21:20] LABS: Hematocrit 42 % (35-47); Mean Corpuscular HGB Conc 33 g/dL (31-36); Mean Corpuscular Hemoglobin 33 pg (27-31); Mean Corpuscular Volume 98 fL (80-97); Mean Platelet Volume 7.3 fL (7.4-10.4); Platelet Count 182 10^3/uL (150-450); Red Blood Count 4.28 10^6 /uL (3.70-4.87); Red Cell Distribution Width 15 % (10-15); White Blood Count 23.2 10^3/uL (3.5-10.8)
[2022-04-22 21:54] LABS: Albumin 3.7 g/dL (3.2-5.2); Albumin/Globulin Ratio 1.3 (1-3); Calcium 9.4 mg/dL (8.6-10.3); Globulin 2.8 g/dL (2-4); Potassium 3.7 mmol/L (3.5-5.0); Total Bilirubin 0.9 mg/dL (0.2-1.0); Total Protein 6.5 g/dL (6.4-8.9)
[2022-04-22 22:21] LABS: ABS Lymphocytes 0.8 10^3/ul (1.0-4.8); ABS Monocytes 0.5 10^3/ul (0-0.8); ABS Neutrophils 21.9 10^3/ul (1.5-7.7); Lymphocyte % 3.3 %
[2022-04-22] MEDS ORDERED: Cefepime 1 GM in Dextrose 1 GM/50 ML BAG IV ONE (23:51)
[2022-04-22] MEDS ORDERED: Vancomycin 1,000 MG in NS 0.9% 250 ml 250 ML IVPB ONE (23:51)
[2022-04-23] MEDS ORDERED: Vancomycin per Pharmacy 1 EA NOTE FOLLOW UP SCH (01:00)
[2022-04-23] MEDS ORDERED: Vancomycin 1500 MG IV - x ONCE IVPB ONE (01:00)
[2022-04-23] MEDS ORDERED: Lactated Ringers 500 ml BAG 500 ML IV ONE (01:03)
[2022-04-23 01:38] LABS: C Reactive Protein 59.05 mg/L (<8.01)
[2022-04-23] MEDS: Enoxaparin 40 MG/0.4 ML SYR SUBCUT SCH ×2 (03:23→20:22)
[2022-04-23] MEDS ORDERED: Lactated Ringers 1000 ml BAG 1,000 ML IV ONE (03:34)
[2022-04-23 05:58] LABS: ABS Lymphocytes 1.1 10^3/ul (1.0-4.8); ABS Monocytes 0.8 10^3/ul (0-0.8); ABS Neutrophils 17.2 10^3/ul (1.5-7.7); Eosinophil % 0.1 %; Hematocrit 39 % (35-47); Mean Corpuscular HGB Conc 34 g/dL (31-36); Mean Corpuscular Hemoglobin 33 pg (27-31); Mean Corpuscular Volume 98 fL (80-97); Mean Platelet Volume 7.5 fL (7.4-10.4); Platelet Count 172 10^3/uL (150-450); Red Blood Count 3.92 10^6 /uL (3.70-4.87); Red Cell Distribution Width 14 % (10-15); White Blood Count 19.2 10^3/uL (3.5-10.8)
[2022-04-23 06:24] LABS: Calcium 9.1 mg/dL (8.6-10.3); Magnesium 1.8 mg/dL (1.9-2.7); Potassium 3.9 mmol/L (3.5-5.0); eGFR CKD-EPI 56.6 (>60)
[2022-04-23] MEDS ORDERED: Magnesium Sulfate IV 3 GM in NS 0.9% 100 ml BAG 100 ML IVPB ONE (06:37)
[2022-04-23] MEDS ORDERED: Magnesium Sulfate 2 GM IV (Premix) IVPB ONE (07:00)
[2022-04-23] MEDS ORDERED: Magnesium Sulfate 1 GM IV 1 GM/100 ML BAG IV ONE (08:00)
[2022-04-23] MEDS: Cholecalciferol (VIT D3) 1,000 unit TAB PO SCH (09:18)
[2022-04-23] MEDS: Calcium (OSCAL) 500 mg TAB PO SCH (09:18)
[2022-04-23 09:53] LABS: TSH Ultra Thyroid Stim Horm 1.92 mcIU/mL (0.34-5.60)
[2022-04-23] MEDS ORDERED: cefTRIAXone 1 gm/50 mL D5W 1 GM/50 ML BAG IV SCH (16:30)
[2022-04-24] MEDS ORDERED: Vancomycin 1,250 MG in NS 0.9% 250 ml 250 ML IVPB SCH (02:00)
[2022-04-24 05:47] LABS: ABS Eosinophils 0.1 10^3/ul (0-0.6); ABS Lymphocytes 1.1 10^3/ul (1.0-4.8); Eosinophil % 0.8 %; Hematocrit 38 % (35-47); Hemoglobin 12.6 g/dL (12.0-16.0); Lymphocyte % 9.8 %; Mean Corpuscular HGB Conc 34 g/dL (31-36); Mean Corpuscular Hemoglobin 33 pg (27-31); Mean Corpuscular Volume 98 fL (80-97); Mean Platelet Volume 7.7 fL (7.4-10.4); Platelet Count 174 10^3/uL (150-450); Red Blood Count 3.82 10^6 /uL (3.70-4.87); Red Cell Distribution Width 14 % (10-15); White Blood Count 11.2 10^3/uL (3.5-10.8)
[2022-04-24 06:21] LABS: Calcium 8.9 mg/dL (8.6-10.3); Magnesium 2.1 mg/dL (1.9-2.7); Potassium 4.2 mmol/L (3.5-5.0); eGFR CKD-EPI 79.7 (>60)
[2022-04-24] MEDS ORDERED: Magnesium Hydroxide LIQ 30 ML UDC PO PRN (07:45)
[2022-04-24] MEDS ORDERED: Senna TAB 8.6 mg TAB PO PRN (07:45)
[2022-04-24] MEDS: Calcium (OSCAL) 500 mg TAB PO SCH (08:52)
[2022-04-24] MEDS: Cholecalciferol (VIT D3) 1,000 unit TAB PO SCH (08:52)
[2022-04-24 11:09] VITALS: BP 122/52
[2022-04-24] MEDS ORDERED: cefTRIAXone 1 gm/50 mL D5W 1 GM/50 ML BAG IV SCH (13:15)
[2022-04-26] MEDS ORDERED: Vancomycin Trough Check NOTE FOLLOW UP ONE (01:30)
== END 2022-04-24 14:00 | disposition home or self-care (01) ==
LOC: ED 16:53 → EDHOLD 16:53 → SUATTDRO 04-23 00:53 → MED 04-23 02:32
PROVIDERS: ADMIT Internal Medicine; ATTEND Internal Medicine